=== PATIENT | female | born 1970 | race Caucasian/White ===

== ENCOUNTER → 2018-06-24 | Outpatient (CLI) | payer OTHER ==
[~2018-06-24] MED LIST: CIPR250 PO; HYDACE5325 PO; Inderal40 MG PO; NAPR500 PO; Naprosyn500 MG PO; PHENA200 PO; Percocet 5-3251 EACH PO; SULTRIDS PO; TOBR.3OPSO OP; Veetids 500500 MG PO; [UNRECOGNIZED DRUG - REMARK]
[2018-06-27 23:09] LABS: CHLAMYDIA TRACHOMATIS, NAA Negative (Negative); NEISSERIA GONORRHOEAE, NAA Negative (Negative)
== END | disposition home or self-care (01) ==
LOC: LAB EV 18:59 → LAB SHORT 18:59
PROVIDERS: Internal Medicine
DX: Z20.9 Contact with and (suspected) exposure to unspecified communicable disease (principal)
CPT/HCPCS: 87491; 87591

== ENCOUNTER 2018-11-08 13:29 | Emergency (ER) | payer OTHER ==
[~2018-11-08] VITALS: Ht 165.1 cm; Wt 154.2 kg
[2018-11-08] MEDS ORDERED: ATEN50 PO (14:19)
[2018-11-08] MEDS ORDERED: AMLO10 PO (14:19)
[2018-11-08] MEDS ORDERED: ERYT1OIN RIGHTEYE (15:40)
== END 2018-11-08 16:03 | disposition home or self-care (01) ==
LOC: ER 13:29
DX: H10.9 Unspecified conjunctivitis (principal); Z79.899 Other long term (current) drug therapy; I10 Essential (primary) hypertension
CPT/HCPCS: 99282

== ENCOUNTER 2020-11-27 19:00 | Emergency (ER) | payer OTHER ==
[~2020-11-27] VITALS: Ht 165.1 cm; Wt 158.8 kg
[~2020-11-27 19:00] MED LIST changes: +AMLO10 PO; +ATEN50 PO; +ERYT1OIN RIGHTEYE
[2020-11-27 20:15] LABS: BASOPHILS ABSOLUTE AUTO 0.02 K/mm3 (0.00-0.23); BASOPHILS PERCENT AUTO 0 % (0-2); EOSINOPHILS ABSOLUTE AUTO 0.28 K/mm3 (0.00-0.68); EOSINOPHILS PERCENT AUTO 3 % (0-6); Hematocrit 46.4 % (33.0-51.0); Hemoglobin 14.9 g/dL (11.5-16.0); IMMATURE GRAN ABSOLUTE AUTO 0.07 K/mm3 (0.00-0.10); IMMATURE GRAN PERCENT AUTO 1 % (0-1); LYMPHOCYTES ABSOLUTE AUTO 1.42 K/mm3 (0.84-5.20); LYMPHOCYTES PERCENT AUTO 17 % (21-46); MONOCYTES ABSOLUTE AUTO 0.79 K/mm3 (0.16-1.47); MONOCYTES PERCENT AUTO 9 % (4-13); Mean Corpuscular HGB Conc 32.1 g/dL (31.5-36.5); Mean Corpuscular Volume 94 fL (80-100); Mean Platelet Volume 9.8 fL (9.1-12.4); NEUTROPHILS ABSOLUTE AUTO 5.91 K/mm3 (1.96-9.15); NEUTROPHILS PERCENT AUTO 70 % (41-73); Platelet Count 269 K/mm3 (150-400); RDW Coefficient Variation 13.7 % (11.7-14.2); RDW Standard Deviation 46.8 fL (35.1-46.3); Red Blood Cell Count 4.96 M/mm3 (3.80-5.20); White Blood Cell Count 8.49 K/mm3 (4.00-11.30)
[2020-11-27 20:36] LABS: Alanine Aminotransfer (ALT/SGP 50 U/L (12-78); Albumin, Blood 3.2 g/dL (3.4-5.0); Albumin/Globulin Ratio 0.9 (0.8-1.8); Alk Phos 133 U/L (50-136); Anion Gap 4 mmol/L (6-16); Aspartate Aminotrans (AST/SGOT 44 U/L (12-37); Bilirubin, Total 0.3 mg/dL (0.1-1.0); Blood Urea Nitrogen 17 mg/dL (8-24); CO2, Blood 27 mmol/L (21-32); Calcium, Blood 8.6 mg/dL (8.5-10.1); Chloride, Blood 109 mmol/L (98-108); Globulin, Blood 3.7 g/dL (2.2-4.0); Glomerular Filtration Rate >60 (60-); Glucose, Blood 114 mg/dL (70-99); Potassium, Blood 4.1 mmol/L (3.5-5.5); Sodium, Blood 140 mmol/L (136-145); Total Protein, Blood 6.9 g/dL (6.4-8.2); Troponin I <0.015 ng/mL (0.000-0.040)
[2020-11-27 21:59] LABS: Source, Urine Clean Catch
[2020-11-27 22:02] LABS: Bilirubin, Urine Neg (Neg); Blood, Urine 2+ (Neg); Glucose Qualitative, Urine Neg (Neg); Ketones, Urine Neg (Neg); Leukocyte Esterase, Urine 2+ (Neg); Nitrite, Urine Neg (Neg); Protein, Urine 2+ (Neg); Specific Gravity, Urine 1.015 (1.003-1.022); Urobilinogen, Urine NORM (Normal); pH, Urine 6.5 (5.0-8.0)
[2020-11-27 22:10] LABS: Appearance, Urine Hazy (Clear); Color, Urine Yellow (P-Yellow)
[2020-11-27 22:11] LABS: Bacteria Many /hpf; Red Blood Cells, Urine Rare /hpf (0-2); Squamous Epithelial Cells Few /hpf (Few); White Blood Cells, Urine TNTC /hpf (0-5)
[2020-11-28] MEDS ORDERED: CEFP200 PO (00:08)
[2020-11-28] MEDS ORDERED: Hydrochlorothia25 MG PO ×2 (00:09→00:10)
[2020-11-28] MEDS ORDERED: AMLO10 PO (00:10)
[2020-11-28] MEDS ORDERED: ATEN50 PO (00:10)
== END 2020-11-28 00:26 | disposition home or self-care (01) ==
LOC: ER 19:00
PROVIDERS: Physician Assistant
DX: I11.0 Hypertensive heart disease with heart failure (principal); I50.9 Heart failure, unspecified; N39.0 Urinary tract infection, site not specified; E66.01 Morbid (severe) obesity due to excess calories; K21.9 Gastro-esophageal reflux disease without esophagitis; K59.00 Constipation, unspecified
CPT/HCPCS: 36415; 71045; 80053; 81001; 83690; 83880; 84484; 85025; 87077; 87086; 87186; 93005; 93010; 96365; 96375; 99284-25; J0360; J0696; J1940

== ENCOUNTER → 2021-02-04 | Outpatient (CLI) | payer OTHER ==
[~2021-02-04] MED LIST changes: +CEFP200 PO; +Hydrochlorothia25 MG PO
== END ==
LOC: LAB 17:48 → LAB SHORT 17:48
DX: L03.119 Cellulitis of unspecified part of limb (principal)
CPT/HCPCS: 87070; 87075; 87205

== ENCOUNTER 2021-03-26 02:13 | Day surgery (SDC) | payer OTHER | END 2021-03-26 23:05 | disposition home or self-care (01) | LOC: WOUND 02:13 | DX: L97.812 Non-pressure chronic ulcer of other part of right lower leg with fat layer exposed (principal); L97.922 Non-pressure chronic ulcer of unspecified part of left lower leg with fat layer exposed; I87.2 Venous insufficiency (chronic) (peripheral); R60.0 Localized edema; I73.9 Peripheral vascular disease, unspecified; Z59.00 Homelessness unspecified | CPT/HCPCS: G0463 ==

== ENCOUNTER 2021-04-04 04:24 | Day surgery (SDC) | payer OTHER ==
[2021-04-12] MEDS ORDERED: CYCL10 PO (15:31)
== END 2021-04-04 23:48 | disposition home or self-care (01) ==
LOC: WOUND 04:24
DX: I89.0 Lymphedema, not elsewhere classified (principal)

== ENCOUNTER → 2021-04-10 | Outpatient (CLI) | payer OTHER ==
[~2021-04-10] MED LIST changes: +CYCL10 PO
[2021-04-10 13:29] LABS: BASOPHILS ABSOLUTE AUTO 0.02 K/mm3 (0.00-0.23); BASOPHILS PERCENT AUTO 0 % (0-2); EOSINOPHILS ABSOLUTE AUTO 0.08 K/mm3 (0.00-0.68); EOSINOPHILS PERCENT AUTO 1 % (0-6); Hematocrit 45.7 % (33.0-51.0); Hemoglobin 14.9 g/dL (11.5-16.0); IMMATURE GRAN ABSOLUTE AUTO 0.16 K/mm3 (0.00-0.10); IMMATURE GRAN PERCENT AUTO 2 % (0-1); LYMPHOCYTES ABSOLUTE AUTO 0.97 K/mm3 (0.84-5.20); LYMPHOCYTES PERCENT AUTO 12 % (21-46); MONOCYTES ABSOLUTE AUTO 1.09 K/mm3 (0.16-1.47); MONOCYTES PERCENT AUTO 13 % (4-13); Mean Corpuscular HGB 29.8 pg (26.0-34.0); Mean Corpuscular HGB Conc 32.6 g/dL (31.5-36.5); Mean Corpuscular Volume 91 fL (80-100); Mean Platelet Volume 9.7 fL (9.1-12.4); NEUTROPHILS ABSOLUTE AUTO 5.97 K/mm3 (1.96-9.15); NEUTROPHILS PERCENT AUTO 72 % (41-73); Platelet Count 213 K/mm3 (150-400); White Blood Cell Count 8.29 K/mm3 (4.00-11.30)
[2021-04-10 13:32] LABS: Anion Gap 7 mmol/L (6-16); Blood Urea Nitrogen 8 mg/dL (8-24); Bun/Creatinine Ratio 8.2 (12.0-20.0); CO2, Blood 29 mmol/L (21-32); Calcium, Blood 8.5 mg/dL (8.5-10.1); Chloride, Blood 98 mmol/L (98-108); Creatinine, Blood 0.97 mg/dL (0.40-1.00); Glomerular Filtration Rate >60 (60-); Glucose, Blood 99 mg/dL (70-99); Potassium, Blood 3.8 mmol/L (3.5-5.5); Sodium, Blood 134 mmol/L (136-145)
== END | disposition home or self-care (01) ==
LOC: LAB 13:22 → LAB SHORT 13:22
PROVIDERS: Physician Assistant Surgical
DX: U07.1 COVID-19 (principal); R60.0 Localized edema
CPT/HCPCS: 80048; 83880; 85025

== ENCOUNTER 2021-05-07 00:40 | Inpatient (IN) | payer OTHER ==
[~2021-05-07] VITALS: Ht 165.1 cm; Wt 174.2 kg
[2021-05-07 01:13] LABS: BASOPHILS ABSOLUTE AUTO 0.04 K/mm3 (0.00-0.23); BASOPHILS PERCENT AUTO 0 % (0-2); EOSINOPHILS ABSOLUTE AUTO 0.46 K/mm3 (0.00-0.68); EOSINOPHILS PERCENT AUTO 4 % (0-6); Hematocrit 41.6 % (33.0-51.0); Hemoglobin 13.8 g/dL (11.5-16.0); IMMATURE GRAN ABSOLUTE AUTO 0.09 K/mm3 (0.00-0.10); IMMATURE GRAN PERCENT AUTO 1 % (0-1); LYMPHOCYTES ABSOLUTE AUTO 1.32 K/mm3 (0.84-5.20); LYMPHOCYTES PERCENT AUTO 11 % (21-46); MONOCYTES ABSOLUTE AUTO 1.38 K/mm3 (0.16-1.47); MONOCYTES PERCENT AUTO 12 % (4-13); Mean Corpuscular HGB 29.9 pg (26.0-34.0); Mean Corpuscular HGB Conc 33.2 g/dL (31.5-36.5); Mean Corpuscular Volume 90 fL (80-100); Mean Platelet Volume 10.6 fL (9.1-12.4); NEUTROPHILS ABSOLUTE AUTO 8.43 K/mm3 (1.96-9.15); NEUTROPHILS PERCENT AUTO 72 % (41-73); Platelet Count 242 K/mm3 (150-400); RDW Coefficient Variation 13.7 % (11.7-14.2); RDW Standard Deviation 45.1 fL (35.1-46.3); Red Blood Cell Count 4.61 M/mm3 (3.80-5.20); White Blood Cell Count 11.72 K/mm3 (4.00-11.30)
[2021-05-07] MEDS ORDERED: METO50ER PO (01:14)
[2021-05-07] MEDS ORDERED: GABA100 PO (01:14)
[2021-05-07] MEDS ORDERED: FURO80 PO (01:15)
[2021-05-07 01:26] LABS: Albumin, Blood 2.9 g/dL (3.4-5.0); Albumin/Globulin Ratio 0.7 (0.8-1.8); Bilirubin, Total 0.6 mg/dL (0.1-1.0); Bun/Creatinine Ratio 20.6 (12.0-20.0); Calcium, Blood 9.3 mg/dL (8.5-10.1); Creatinine, Blood 1.02 mg/dL (0.40-1.00); Globulin, Blood 4.2 g/dL (2.2-4.0); Potassium, Blood 3.4 mmol/L (3.5-5.5); Total Protein, Blood 7.1 g/dL (6.4-8.2)
[2021-05-07 01:37] LABS: C-REACTIVE PROTEIN, EXT RANGE 10.3 mg/dL (0.000-0.300)
[2021-05-07 07:05] LABS: BASOPHILS ABSOLUTE AUTO 0.04 K/mm3 (0.00-0.23); BASOPHILS PERCENT AUTO 0 % (0-2); EOSINOPHILS ABSOLUTE AUTO 0.43 K/mm3 (0.00-0.68); EOSINOPHILS PERCENT AUTO 5 % (0-6); Hematocrit 35.1 % (33.0-51.0); Hemoglobin 11.6 g/dL (11.5-16.0); IMMATURE GRAN ABSOLUTE AUTO 0.09 K/mm3 (0.00-0.10); IMMATURE GRAN PERCENT AUTO 1 % (0-1); LYMPHOCYTES ABSOLUTE AUTO 1.27 K/mm3 (0.84-5.20); LYMPHOCYTES PERCENT AUTO 13 % (21-46); MONOCYTES ABSOLUTE AUTO 0.95 K/mm3 (0.16-1.47); MONOCYTES PERCENT AUTO 10 % (4-13); Mean Corpuscular HGB 30.1 pg (26.0-34.0); Mean Corpuscular Volume 91 fL (80-100); Mean Platelet Volume 10.5 fL (9.1-12.4); NEUTROPHILS ABSOLUTE AUTO 6.87 K/mm3 (1.96-9.15); NEUTROPHILS PERCENT AUTO 71 % (41-73); Platelet Count 210 K/mm3 (150-400); RDW Coefficient Variation 13.8 % (11.7-14.2); RDW Standard Deviation 46.2 fL (35.1-46.3); Red Blood Cell Count 3.85 M/mm3 (3.80-5.20); White Blood Cell Count 9.65 K/mm3 (4.00-11.30)
[2021-05-07 08:24] LABS: Alanine Aminotransfer (ALT/SGP 37 U/L (12-78); Albumin, Blood 2.2 g/dL (3.4-5.0); Albumin/Globulin Ratio 0.8 (0.8-1.8); Alk Phos 83 U/L (50-136); Anion Gap 8 mmol/L (6-16); Aspartate Aminotrans (AST/SGOT 32 U/L (12-37); Bilirubin, Total 0.8 mg/dL (0.1-1.0); Blood Urea Nitrogen 17 mg/dL (8-24); Bun/Creatinine Ratio 20.3 (12.0-20.0); CO2, Blood 24 mmol/L (21-32); Calcium, Blood 7.5 mg/dL (8.5-10.1); Chloride, Blood 112 mmol/L (98-108); Creatinine, Blood 0.84 mg/dL (0.40-1.00); Globulin, Blood 2.8 g/dL (2.2-4.0); Glomerular Filtration Rate >60 (60-); Glucose, Blood 116 mg/dL (70-99); Potassium, Blood 3.2 mmol/L (3.5-5.5); Sodium, Blood 144 mmol/L (136-145)
--- NOTE | 2021-05-07 15:08 | NUR ---
PATIENT HAS BEEN PLEASANT AND COOPERATIVE WITH STAFF. SHE CALLS APPROPRIATELY FOR STAFF ASSIST NEEDED HOWEVER DOES WELL TRANSFERING HERSELF TO/FROM THE BED/BSC ON HER OWN. BLE EXTREMELY EDEMEDOUS AND APPEAR TO BE COVERED WITH POSSIBLY VENOUS STASIS ULCERS? WOUND APPEARING NECROTIC TO L GARCIA. LLE WRAPPED IN XEROFORM AND KERLIX BY WOUND CLINIC STAFF MEMBER. FINGER WRAPPED THE SAME. PATIENT MEDICATED WITH IV FENTANYL ONCE AND IT WAS VERY EFFECTIVE WITH PAIN CONTROL. PATIENT CONTINUES TO RECIEVE IV ABX AND IV POTASSIUM WITHOUT ANY S/SX OR ADVERSE REACTIONS OR CONCERNS NOTED OR REPORTED. THE PATIENT IS CURRENTLY RESTING IN BED. CALL LIGHT WITHIN REACH.
--- NOTE | 2021-05-07 16:51 | NUR ---
I went and spoke with the patient today in her [facility] room 301. Patient requested I order a 4 wheeled walker with a seat. I ordered that via [place] to be delivered today to her [facility] room. Patient states she does not have a preference for Home Health or and prefers UVNR if placed at a SNF. Pt states she lives in an RV with her boyfriend although she has not had contact with him in the last few days. Pt states she uses a cane at home but, does not have it with her in the hospital. Patient reports that she does have family in the area and anticipates them visiting her in the hospital this afternoon.
--- NOTE | 2021-05-08 06:16 | NUR ---
SHIFT SUMMARY PT VERY SLEEPY THIS EVENING. DIFFICULT TO AROUSE AT TIMES. PT STATES THAT THIS IS NORMAL FOR HER. PT WOULD WAKE TO ANSWER QUESTIONS AND WOKE LONG ENOUGH TO EAT A SNACK BUT WOULD SHORTLY AFTER FALL BACK ASLEEP. PT REPORTING PAIN TO R POINTER FINGER, HOWEVER DID NOT MEDICATE DUE TO LETHARGY. DRESSING TO R POINTER FINGER AND LLE C/D/I. DISCOLORATION NOTED TO LLE. PT EDEMATOUS THROUGHOUT. VITAL SIGNS STABLE. WILL CONTINUE TO MONITOR.
[2021-05-08 07:50] LABS: BASOPHILS ABSOLUTE AUTO 0.05 K/mm3 (0.00-0.23); BASOPHILS PERCENT AUTO 1 % (0-2); EOSINOPHILS ABSOLUTE AUTO 0.56 K/mm3 (0.00-0.68); EOSINOPHILS PERCENT AUTO 5 % (0-6); Hematocrit 43.2 % (33.0-51.0); Hemoglobin 13.9 g/dL (11.5-16.0); IMMATURE GRAN ABSOLUTE AUTO 0.11 K/mm3 (0.00-0.10); IMMATURE GRAN PERCENT AUTO 1 % (0-1); LYMPHOCYTES ABSOLUTE AUTO 1.75 K/mm3 (0.84-5.20); LYMPHOCYTES PERCENT AUTO 16 % (21-46); MONOCYTES ABSOLUTE AUTO 1.18 K/mm3 (0.16-1.47); MONOCYTES PERCENT AUTO 11 % (4-13); Mean Corpuscular HGB 29.6 pg (26.0-34.0); Mean Corpuscular HGB Conc 32.2 g/dL (31.5-36.5); Mean Corpuscular Volume 92 fL (80-100); Mean Platelet Volume 10.6 fL (9.1-12.4); NEUTROPHILS ABSOLUTE AUTO 7.12 K/mm3 (1.96-9.15); NEUTROPHILS PERCENT AUTO 66 % (41-73); Platelet Count 284 K/mm3 (150-400); RDW Coefficient Variation 13.7 % (11.7-14.2); RDW Standard Deviation 46.5 fL (35.1-46.3); White Blood Cell Count 10.77 K/mm3 (4.00-11.30)
[2021-05-08 08:24] LABS: Albumin, Blood 2.7 g/dL (3.4-5.0); Anion Gap 7 mmol/L (6-16); Blood Urea Nitrogen 20 mg/dL (8-24); CO2, Blood 31 mmol/L (21-32); Calcium, Blood 9.2 mg/dL (8.5-10.1); Chloride, Blood 102 mmol/L (98-108); Creatinine, Blood 1.25 mg/dL (0.40-1.00); Glomerular Filtration Rate 45 (60-); Glucose, Blood 137 mg/dL (70-99); Magnesium, Blood 1.6 mg/dL (1.6-2.4); Phosphorus, Blood 3.1 mg/dL (2.5-4.9); Sodium, Blood 140 mmol/L (136-145)
[2021-05-08 15:23] LABS: BASOPHILS ABSOLUTE AUTO 0.06 K/mm3 (0.00-0.23); BASOPHILS PERCENT AUTO 1 % (0-2); EOSINOPHILS ABSOLUTE AUTO 0.57 K/mm3 (0.00-0.68); EOSINOPHILS PERCENT AUTO 5 % (0-6); Hemoglobin 14.5 g/dL (11.5-16.0); IMMATURE GRAN ABSOLUTE AUTO 0.15 K/mm3 (0.00-0.10); IMMATURE GRAN PERCENT AUTO 1 % (0-1); LYMPHOCYTES ABSOLUTE AUTO 1.65 K/mm3 (0.84-5.20); LYMPHOCYTES PERCENT AUTO 15 % (21-46); MONOCYTES ABSOLUTE AUTO 1.12 K/mm3 (0.16-1.47); MONOCYTES PERCENT AUTO 10 % (4-13); Mean Corpuscular Volume 91 fL (80-100); Mean Platelet Volume 10.3 fL (9.1-12.4); NEUTROPHILS ABSOLUTE AUTO 7.37 K/mm3 (1.96-9.15); NEUTROPHILS PERCENT AUTO 68 % (41-73); Platelet Count 303 K/mm3 (150-400); RDW Coefficient Variation 13.6 % (11.7-14.2); RDW Standard Deviation 45.7 fL (35.1-46.3); Red Blood Cell Count 4.84 M/mm3 (3.80-5.20); White Blood Cell Count 10.92 K/mm3 (4.00-11.30)
[2021-05-08 15:49] LABS: Anion Gap 7 mmol/L (6-16); Blood Urea Nitrogen 19 mg/dL (8-24); Bun/Creatinine Ratio 14.2 (12.0-20.0); CO2, Blood 33 mmol/L (21-32); Calcium, Blood 9.6 mg/dL (8.5-10.1); Chloride, Blood 99 mmol/L (98-108); Creatinine, Blood 1.34 mg/dL (0.40-1.00); Glomerular Filtration Rate 42 (60-); Glucose, Blood 140 mg/dL (70-99); Potassium, Blood 3.8 mmol/L (3.5-5.5); Sodium, Blood 139 mmol/L (136-145); Vancomycin, Random 18.6 ug/mL
--- NOTE | 2021-05-08 17:14 | NUR ---
PT AOX4 AND COOPERATIVE OF CARE.PT CONTINUE TO HAVE EDEMA LE WITH REDNESS. R INDEX FINGER IS VERY RED, SWOLLEN AND HOT REDNESS EXTENDS TO FOREARM. DR BRITT HAS BEEN CONSULTED BY DR LYNN TO EVALUATE R FINGER. PT TREATED FOR PAIN IN R FINGER PER EMAR. PT STARTED SHIFT WITH BP OF 163/113 AND WAS GIVEN MORNING BP MEDS. LAST BP OF 1603 WAS 149/97. NO DISTRESS NOTED AT THIS TIME PT ABLE TO CALL APPROPRIATELY. WILL CONTINUE TO MONITOR.
[2021-05-08 22:48] LABS: Influenza A, PCR NEGATIVE (NEGATIVE); Influenza B, PCR NEGATIVE (NEGATIVE); Resp Syncytial Virus, PCR NEGATIVE (NEGATIVE)
[2021-05-08 22:50] LABS: SARS-Cov-2 (COVID-19) PCR, MMC POSITIVE (NEGATIVE)
--- NOTE | 2021-05-09 05:30 | NUR ---
PT REMAINS ALERT AND ORIENTED X4, SLEPT FOR MOST OF THE NIGHT AND HAD Q4 HAND SOAKINGS ALONG WITH NPO AFTER MIDNIGHT. PT REFUSED HS ANTI-FUNGAL POWDER AND VS ALONG WITH 0500 VS. PT STATES SHE IS SLEEPING AND REFUSES. PT MAKE NO COMPLAINTS THIS SHIFT, WENT TO AND FROM [facility] WITH STAND BY ASSIST. STAFF WILL CONT TO MONITOR.
[2021-05-09 08:07] LABS: Albumin, Blood 2.8 g/dL (3.4-5.0); Anion Gap 5 mmol/L (6-16); Blood Urea Nitrogen 19 mg/dL (8-24); Bun/Creatinine Ratio 16.2 (12.0-20.0); CO2, Blood 36 mmol/L (21-32); Calcium, Blood 9.5 mg/dL (8.5-10.1); Chloride, Blood 98 mmol/L (98-108); Creatinine, Blood 1.17 mg/dL (0.40-1.00); Glomerular Filtration Rate 49 (60-); Glucose, Blood 144 mg/dL (70-99); Magnesium, Blood 1.6 mg/dL (1.6-2.4); Phosphorus, Blood 3.2 mg/dL (2.5-4.9); Potassium, Blood 3.9 mmol/L (3.5-5.5); Sodium, Blood 139 mmol/L (136-145)
[2021-05-09 14:38] LABS: Vancomycin, Trough 16.9 ug/mL (5.0-10.0)
--- NOTE | 2021-05-09 16:38 | NUR ---
05/09/21 5673 Carla Alegria 14G ANGIOCATH CUT TO SIZE TO MAKE DRAIN. ONE PIECE LEFT IN.
--- NOTE | 2021-05-09 17:47 | NUR ---
PT AOX4 AND COOPERATIVE. PT HAS BEEN NPO ALL DAY AND THEN WHEN FOR HER PROCEDURE AT 1445 AND THEN ARRIVED BACK AFTER L FINGER IND WAS COMPLETED AT 1700. PT AO AND WANTING HER DINNER BP CONTINUES TO BE HIGH DOCTOR BURDEN IS AWARE. WILL CONTINUE TO MONITOR.
--- NOTE | 2021-05-10 06:13 | NUR ---
SHIFT SUMMARY PT IS A 51 Y/O FEMALE, ADMITTED FOR CELLULITIS OF R INDEX FINGER. SHE IS A&O X 4, INDEPENDENT TO THE BS. PT HAD A SURGICAL I&D OF THE R INDEX FINGER ON 05/09. SURGICAL DRESSING IN PLACE. PT SLEPT THROUGH THE NIGHT, NO REQUESTS FOR PAIN MEDS. NO REPORTS OF NAUSEA OR SOB. PT IS ON 3L O2 DURING NOC, SATTING > 90%. ALL OTHER VITALS STABLE. NO OTHER ACUTE CHANGES IN PT CONDITION NOTED DURING THE NIGHT. WILL CONTINUE TO MONITOR AND TREAT PER EMAR UNTIL HAND OFF TO DAY SHIFT RN.
[2021-05-10 07:48] LABS: Albumin, Blood 2.7 g/dL (3.4-5.0); Anion Gap 6 mmol/L (6-16); Blood Urea Nitrogen 28 mg/dL (8-24); Bun/Creatinine Ratio 17.9 (12.0-20.0); CO2, Blood 35 mmol/L (21-32); Calcium, Blood 9.2 mg/dL (8.5-10.1); Chloride, Blood 98 mmol/L (98-108); Creatinine, Blood 1.56 mg/dL (0.40-1.00); Glomerular Filtration Rate 35 (60-); Glucose, Blood 163 mg/dL (70-99); Phosphorus, Blood 3.4 mg/dL (2.5-4.9); Potassium, Blood 4.8 mmol/L (3.5-5.5); Sodium, Blood 139 mmol/L (136-145)
--- NOTE | 2021-05-10 16:33 | NUR ---
SHIFT SUMMARY PT AXO, PLEASANT AND COOPERATIVE WITH CARE. UP WITH SBA TO BSC AND CHAIR. VSS. IV PATENT AND INFUSING PER EMAR. PO INTAKE OF WATER ENCOURAGED. PT ASKED FOR SNACKS THROUGHOUT THE DAY. CBG ACHS. THIS NURSE DISCUSSED HEALTHY CHOICES FOR FOOD AND DIET BUT PATIENT DOES NOT HAVE A DIABETES DIAGNOSIS AND NEEDS EXTENSIVE EDUCATION CONCERNING DIET. PT COMPLAINED OF PAIN X1 THIS SHIFT, MEDICATED PER EMAR. BED IN LOW POSITION, CALL LIGHT WITHIN REACH. PT DENIES SOB AND N/V.
--- NOTE | 2021-05-11 05:13 | NUR ---
SHIFT SUMMARY PT IS A 51 Y/O FEMALE ADMITTED FOR R HAND CELLULITIS, WITH SURGICAL I&D OF R INDEX FINGER ON 05/09. SURGICAL DRESSING IN PLACE. NO C/O ACUTE PAIN, NAUSEA OR SOB. PT SLEPT WELL THROUGH THE NIGHT. PT ON 3L O2 VIA NC DURING NOC. VITAL SIGNS STABLE. NO ACUTE CHANGES IN PT CONDITION NOTED. WILL CONTINUE TO MONITOR AND TREAT PER EMAR UNTIL HAND OFF TO DAY SHIFT RN.
[2021-05-11 07:42] LABS: BASOPHILS ABSOLUTE AUTO 0.05 K/mm3 (0.00-0.23); BASOPHILS PERCENT AUTO 1 % (0-2); EOSINOPHILS ABSOLUTE AUTO 0.32 K/mm3 (0.00-0.68); EOSINOPHILS PERCENT AUTO 3 % (0-6); Hematocrit 46.1 % (33.0-51.0); Hemoglobin 14.6 g/dL (11.5-16.0); IMMATURE GRAN ABSOLUTE AUTO 0.31 K/mm3 (0.00-0.10); IMMATURE GRAN PERCENT AUTO 3 % (0-1); LYMPHOCYTES ABSOLUTE AUTO 1.83 K/mm3 (0.84-5.20); LYMPHOCYTES PERCENT AUTO 17 % (21-46); MONOCYTES ABSOLUTE AUTO 0.87 K/mm3 (0.16-1.47); MONOCYTES PERCENT AUTO 8 % (4-13); Mean Corpuscular HGB 29.7 pg (26.0-34.0); Mean Corpuscular HGB Conc 31.7 g/dL (31.5-36.5); Mean Corpuscular Volume 94 fL (80-100); Mean Platelet Volume 9.9 fL (9.1-12.4); NEUTROPHILS ABSOLUTE AUTO 7.23 K/mm3 (1.96-9.15); NEUTROPHILS PERCENT AUTO 68 % (41-73); NRBC ABSOLUTE 0.02 K/mm3 (0.00-0.02); NRBC Auto 0.2 /100 WBC (0.0-0.2); Platelet Count 289 K/mm3 (150-400); RDW Coefficient Variation 13.4 % (11.7-14.2); RDW Standard Deviation 46.2 fL (35.1-46.3); Red Blood Cell Count 4.92 M/mm3 (3.80-5.20); White Blood Cell Count 10.61 K/mm3 (4.00-11.30)
[2021-05-11 07:58] LABS: Albumin, Blood 2.8 g/dL (3.4-5.0); Anion Gap 7 mmol/L (6-16); Blood Urea Nitrogen 30 mg/dL (8-24); Bun/Creatinine Ratio 22.1 (12.0-20.0); CO2, Blood 35 mmol/L (21-32); Calcium, Blood 9.6 mg/dL (8.5-10.1); Chloride, Blood 101 mmol/L (98-108); Creatinine, Blood 1.36 mg/dL (0.40-1.00); Glomerular Filtration Rate 41 (60-); Glucose, Blood 117 mg/dL (70-99); Potassium, Blood 4.6 mmol/L (3.5-5.5); Sodium, Blood 143 mmol/L (136-145)
--- NOTE | 2021-05-11 16:43 | NUR ---
SHIFT SUMMARY PATIENT DENIES PAIN, NAUSEA, AND SHORTNESS OF BREATH. PATIENT USES THE BSC INDEPENDENTLY. PATIENT DID HAVE ASSIST WITH A SHOWER TODAY. POWERGLIDE TO MARY CARMEN DRAWS. PATIENT IS EATING AND DRINKING WELL. PATIENT SLEPT IN AFTERNOON. DR. BRITT CHANGED DRESSING ON PATIENT RIHGT FINGER. TOLD PATIENT SHE COULD TAKE IT OFF TO SHOWER. DR. BRITT TOLD ME TO REDO THE BANDAGE WITH 4X4 AND COBAN AFTER SHOWER. PATIENT IS PLEASANT AND COOPERATIVE WITH CARE.
--- NOTE | 2021-05-12 04:00 | NUR ---
SUMMARY: PT A/OX4, INDEPENDENT TO BSC AND CALLS APPROPRIATELY TO SPECIFY NEEDS. DX TO R.HAND REMAINS C/D/I S/P RECENT I&D AND IV ABX RECIEVED T/O NOCTE. SHE DENIED PAIN, NAUSEA AND ALL OTHER COMPLAINTS. NO ACUTE CHANGES, VSS/AFEBRILE. SHE REMAINS ON 2-3L O2 AT HS AND CONT'S HYPERTENSIVE AT TIMES BUT IS ASYMPTOMATIC OF CARDIAC DISTRESS. SNF UPON D/C. WCTM/REPORT TO DAY RN.
[2021-05-12 08:15] LABS: BASOPHILS ABSOLUTE AUTO 0.05 K/mm3 (0.00-0.23); BASOPHILS PERCENT AUTO 1 % (0-2); EOSINOPHILS ABSOLUTE AUTO 0.36 K/mm3 (0.00-0.68); EOSINOPHILS PERCENT AUTO 4 % (0-6); Hematocrit 45.6 % (33.0-51.0); Hemoglobin 14.7 g/dL (11.5-16.0); IMMATURE GRAN ABSOLUTE AUTO 0.26 K/mm3 (0.00-0.10); IMMATURE GRAN PERCENT AUTO 3 % (0-1); LYMPHOCYTES PERCENT AUTO 15 % (21-46); MONOCYTES ABSOLUTE AUTO 0.84 K/mm3 (0.16-1.47); MONOCYTES PERCENT AUTO 9 % (4-13); Mean Corpuscular HGB 29.5 pg (26.0-34.0); Mean Corpuscular HGB Conc 32.2 g/dL (31.5-36.5); Mean Corpuscular Volume 92 fL (80-100); Mean Platelet Volume 9.7 fL (9.1-12.4); NEUTROPHILS ABSOLUTE AUTO 6.75 K/mm3 (1.96-9.15); NEUTROPHILS PERCENT AUTO 70 % (41-73); Platelet Count 297 K/mm3 (150-400); RDW Coefficient Variation 13.5 % (11.7-14.2); RDW Standard Deviation 45.6 fL (35.1-46.3); Red Blood Cell Count 4.98 M/mm3 (3.80-5.20); White Blood Cell Count 9.66 K/mm3 (4.00-11.30)
[2021-05-12 08:42] LABS: Albumin, Blood 2.9 g/dL (3.4-5.0); Anion Gap 6 mmol/L (6-16); Blood Urea Nitrogen 29 mg/dL (8-24); CO2, Blood 33 mmol/L (21-32); Calcium, Blood 9.7 mg/dL (8.5-10.1); Chloride, Blood 102 mmol/L (98-108); Creatinine, Blood 1.32 mg/dL (0.40-1.00); Glomerular Filtration Rate 42 (60-); Glucose, Blood 152 mg/dL (70-99); Phosphorus, Blood 3.5 mg/dL (2.5-4.9); Potassium, Blood 3.9 mmol/L (3.5-5.5); Sodium, Blood 141 mmol/L (136-145)
[2021-05-12 08:57] LABS: Bun/Creatinine Ratio 22.7 (12.0-20.0); Calcium, Blood 9.6 mg/dL (8.5-10.1); Creatinine, Blood 1.32 mg/dL (0.40-1.00); Potassium, Blood 3.9 mmol/L (3.5-5.5)
[2021-05-12 12:21] LABS: Eosinophils-Raw #,Urine 0; White Blood Cells Urine 0-2 /hpf (0-5)
[2021-05-12 15:06] LABS: Vancomycin, Trough 25.6 ug/mL (5.0-10.0)
--- NOTE | 2021-05-12 18:12 | NUR ---
SHIFT SUMMARY PATIENT RESTING IN BED. PATIENT C/O PAIN IN FINGER. MEDICATED PER AUG. PATIENT GETS UP TO BEDSIDE COMMODE INDEPENDENTLY. CHANGED DRESSING ON FINGER WOUND MULTIPLE TIMES THROUGHOUT SHIFT. APPLIED UNNA BOOTS TO BLE. PATIENT REFUSED AUGMENTIN MEDICATION ORIGINALLY BUT NOW HAS CHANGED HER MIND AND IS WILLING TO TAKE NEXT DOSE. BLOOD PRESSURE ELEVATED. MEDICATED PER AUG. WILL CONTINUE TO MONITOR.
--- NOTE | 2021-05-13 05:13 | NUR ---
SHIFT SUMMARY: PT IS ALERT AND ORIENTED. PT IS CALM AND COOPERATIVE WITH CARE. PT CALLS APPROPRIATELY. PT IS INDEPENDENT IN THE ROOM. PT REPORTS PAIN ON ONE OCCASION, GAVE PRN FENTANYL. PT DENIES NAUSEA, VOMITING, AND SOB. PT SLEPT MUCH OF THE NIGHT WHEN NOT DISTURBED. PT'S PG WOULD NOT DRAW MORNING LABS AND PATIENT SAID SHE IS A POSSIBLE DC TODAY AND WOULD NOT LIKE TO BE DRAWN AT THIS TIME. NO ACUTE CHANGES OR COMPLICATIONS OVERNIGHT. BED IN LOW POSITION, CALL LIGHT WITHIN REACH. WILL REPORT TO DAY NURSE.
[2021-05-13 09:56] LABS: BASOPHILS ABSOLUTE AUTO 0.06 K/mm3 (0.00-0.23); BASOPHILS PERCENT AUTO 1 % (0-2); EOSINOPHILS ABSOLUTE AUTO 0.35 K/mm3 (0.00-0.68); EOSINOPHILS PERCENT AUTO 3 % (0-6); Hematocrit 50.4 % (33.0-51.0); Hemoglobin 15.9 g/dL (11.5-16.0); IMMATURE GRAN ABSOLUTE AUTO 0.31 K/mm3 (0.00-0.10); IMMATURE GRAN PERCENT AUTO 3 % (0-1); LYMPHOCYTES ABSOLUTE AUTO 1.89 K/mm3 (0.84-5.20); LYMPHOCYTES PERCENT AUTO 16 % (21-46); MONOCYTES ABSOLUTE AUTO 0.96 K/mm3 (0.16-1.47); MONOCYTES PERCENT AUTO 8 % (4-13); Mean Corpuscular HGB 29.2 pg (26.0-34.0); Mean Corpuscular HGB Conc 31.5 g/dL (31.5-36.5); Mean Corpuscular Volume 93 fL (80-100); NEUTROPHILS ABSOLUTE AUTO 8.11 K/mm3 (1.96-9.15); NEUTROPHILS PERCENT AUTO 69 % (41-73); Platelet Count 315 K/mm3 (150-400); RDW Coefficient Variation 13.5 % (11.7-14.2); RDW Standard Deviation 45.6 fL (35.1-46.3); Red Blood Cell Count 5.45 M/mm3 (3.80-5.20); White Blood Cell Count 11.68 K/mm3 (4.00-11.30)
[2021-05-13 10:24] LABS: Albumin, Blood 3.2 g/dL (3.4-5.0); Albumin/Globulin Ratio 0.7 (0.8-1.8); Bilirubin, Total 0.6 mg/dL (0.1-1.0); Bun/Creatinine Ratio 25.2 (12.0-20.0); Creatinine, Blood 1.39 mg/dL (0.40-1.00); Globulin, Blood 4.3 g/dL (2.2-4.0); Phosphorus, Blood 3.6 mg/dL (2.5-4.9); Potassium, Blood 4.1 mmol/L (3.5-5.5); Total Protein, Blood 7.5 g/dL (6.4-8.2)
--- NOTE | 2021-05-13 18:18 | NUR ---
PATIENT IS ALERT AND ORIENTED AND COOPERATIVE WITH CARE. C/O RIGHT FINGER PAIN, MEDICATED PER EMAR. WORKED WITH PT TODAY. SHE IS INDEPENDENT IN HER ROOM WITH FWW. WILL CONTINUE TO MONITOR
[2021-05-14 04:54] LABS: BASOPHILS ABSOLUTE AUTO 0.05 K/mm3 (0.00-0.23); BASOPHILS PERCENT AUTO 1 % (0-2); EOSINOPHILS ABSOLUTE AUTO 0.27 K/mm3 (0.00-0.68); EOSINOPHILS PERCENT AUTO 3 % (0-6); Hematocrit 47.3 % (33.0-51.0); Hemoglobin 15.2 g/dL (11.5-16.0); IMMATURE GRAN ABSOLUTE AUTO 0.25 K/mm3 (0.00-0.10); IMMATURE GRAN PERCENT AUTO 2 % (0-1); LYMPHOCYTES ABSOLUTE AUTO 1.85 K/mm3 (0.84-5.20); LYMPHOCYTES PERCENT AUTO 17 % (21-46); MONOCYTES ABSOLUTE AUTO 0.82 K/mm3 (0.16-1.47); MONOCYTES PERCENT AUTO 8 % (4-13); Mean Corpuscular HGB 29.4 pg (26.0-34.0); Mean Corpuscular HGB Conc 32.1 g/dL (31.5-36.5); Mean Corpuscular Volume 92 fL (80-100); Mean Platelet Volume 10.1 fL (9.1-12.4); NEUTROPHILS ABSOLUTE AUTO 7.51 K/mm3 (1.96-9.15); NEUTROPHILS PERCENT AUTO 70 % (41-73); Platelet Count 275 K/mm3 (150-400); RDW Coefficient Variation 13.2 % (11.7-14.2); RDW Standard Deviation 44.8 fL (35.1-46.3); Red Blood Cell Count 5.17 M/mm3 (3.80-5.20); White Blood Cell Count 10.75 K/mm3 (4.00-11.30)
[2021-05-14 05:10] LABS: Bun/Creatinine Ratio 29.8 (12.0-20.0); Calcium, Blood 9.7 mg/dL (8.5-10.1); Creatinine, Blood 1.41 mg/dL (0.40-1.00); Potassium, Blood 4.1 mmol/L (3.5-5.5)
--- NOTE | 2021-05-14 05:45 | NUR ---
SHIFT SUMMARY PATIENT ALERT AND ORIENTED. MEDICATED PER EMAR FOR PAIN. NO COMPLAINTS OF SHORTNESS OF BREATH. PATIENT'S FINGER HAS INCREASED IN REDNESS AND SWELLING OVERNIGHT. CALL LIGHT WITHIN REACH. REPORT GIVEN TO ONCOMING RN.
[2021-05-14] MEDS ORDERED: ACET325 PO (11:12)
[2021-05-14] MEDS ORDERED: CATAPRES0.1 MG PO (11:13)
[2021-05-14] MEDS ORDERED: AMOCLA875 PO (11:13)
[2021-05-14] MEDS ORDERED: DOCU100 PO (11:13)
[2021-05-14] MEDS ORDERED: HYDRA25 PO (11:14)
[2021-05-14] MEDS ORDERED: Inzo Antifun141.7 GM TOP (11:15)
[2021-05-14] MEDS ORDERED: ADALAT CC60 M1 PO (11:16)
[2021-05-14] MEDS ORDERED: B-1100 M2 PO (11:17)
[2021-05-14] MEDS ORDERED: VISBIOME 112.51 EACH PO (11:17)
[2021-05-14] MEDS ORDERED: POTA10T PO (11:17)
[2021-05-14] MEDS ORDERED: [UNRECOGNIZED DRUG - SUPPLY] TOP (11:19)
--- NOTE | 2021-05-14 11:25 | NUR ---
Per chart review with Dr. Marie, patient appropriate for discharge to her home with [facility] services. Patient will be transport by [facility] via wheelchair at 4:30PM to cigar packer and picker her prescriptions on the way to her residence. Patient is aware of discharge plan and denies barriers to discharge. Patient is also scheduled for a [facility] Follow-Up with Dr. Morin on Wednesday, May 19, 2021 at 11:20 AM. I confirmed time/date with patient. On 05/08/2021 patient was tested for Covid - test was positive. [facility] has been informed of precautions.
[2021-05-14 11:37] LABS: Creatinine, Urine Random 39.7 mg/dL (27.00-270.00); Microalb/Creat Ratio UR, Rand 15.189 mg/g (0.000-30.000); Microalbumin, Random Urine 6.03 mg/L (0.000-20.000)
--- NOTE | 2021-05-14 17:26 | NUR ---
PATIENT DISCHARGED AT 1700
== END 2021-05-14 17:09 | disposition home health service (06) | DRG 513 ==
LOC: ER 00:40 → MEDS 04:50
PROVIDERS: Family Medicine; Hospitalist; Internal Medicine Nephrology; Orthopaedic Surgery; Pharmacist; Student in an Organized Health Care Education/Training Program; ADMIT Internal Medicine
PROC: 8E0ZXY6 Isolation (ICD-10-PCS; principal; 2021-05-07)
PROC: 0L970ZZ Drainage of Right Hand Tendon, Open Approach (ICD-10-PCS; 2021-05-07)
PROC: 0J9J0ZZ Drainage of Right Hand Subcutaneous Tissue and Fascia, Open Approach (ICD-10-PCS; 2021-05-09)
DX: M65.841 Other synovitis and tenosynovitis, right hand (principal); U07.1 COVID-19; N17.0 Acute kidney failure with tubular necrosis; L03.113 Cellulitis of right upper limb; L02.511 Cutaneous abscess of right hand; I13.0 Hypertensive heart and chronic kidney disease with heart failure and stage 1 through stage 4 chronic kidney disease, or unspecified chronic kidney disease; N25.81 Secondary hyperparathyroidism of renal origin; I16.0 Hypertensive urgency; Z66 Do not resuscitate; E66.01 Morbid (severe) obesity due to excess calories; K58.9 Irritable bowel syndrome, unspecified; E86.0 Dehydration; E87.6 Hypokalemia; I50.9 Heart failure, unspecified; I87.2 Venous insufficiency (chronic) (peripheral); K21.9 Gastro-esophageal reflux disease without esophagitis; Z98.84 Bariatric surgery status; Z98.890 Other specified postprocedural states; Z88.1 Allergy status to other antibiotic agents; Z79.899 Other long term (current) drug therapy
CPT/HCPCS: 0241U; 10060; 36415; 73140; 76770; 80048; 80053; 80069; 80202; 81025; 82043; 82436; 82570; 82947; 83735; 83880; 84100; 84300; 85025; 85651; 86140; 86141; 87071; 87075; 87081; 87205; 94760; 96365; 96366; 96367; 96375; 97110; 97116; 97162; 97166; 97530; 97535; 99284-25; A9270; C8923; J0330; J1100; J1650; J1940; J2270; J2405; J2543; J2704; J3010; J3370; J3480; J7030; J7040; J7050; Q9957

== ENCOUNTER 2021-08-11 20:07 | Inpatient (IN) | payer OTHER ==
[~2021-08-11] VITALS: Ht 162.6 cm; Wt 182.2 kg
[~2021-08-11 20:07] MED LIST changes: +ACET325 PO; +ADALAT CC60 M1 PO; +AMOCLA875 PO; +B-1100 M2 PO; +CATAPRES0.1 MG PO; +DOCU100 PO; +FURO80 PO; +GABA100 PO; +HYDRA25 PO; +Inzo Antifun141.7 GM TOP; +METO50ER PO; +POTA10T PO; +VISBIOME 112.51 EACH PO; +[UNRECOGNIZED DRUG - SUPPLY] TOP
[2021-08-11 21:08] LABS: BASOPHILS ABSOLUTE AUTO 0.06 K/mm3 (0.00-0.23); BASOPHILS PERCENT AUTO 0 % (0-2); EOSINOPHILS ABSOLUTE AUTO 0.21 K/mm3 (0.00-0.68); EOSINOPHILS PERCENT AUTO 1 % (0-6); Hematocrit 40.9 % (33.0-51.0); Hemoglobin 13.4 g/dL (11.5-16.0); IMMATURE GRAN ABSOLUTE AUTO 0.22 K/mm3 (0.00-0.10); IMMATURE GRAN PERCENT AUTO 1 % (0-1); LYMPHOCYTES ABSOLUTE AUTO 1.03 K/mm3 (0.84-5.20); LYMPHOCYTES PERCENT AUTO 6 % (21-46); MONOCYTES ABSOLUTE AUTO 1.14 K/mm3 (0.16-1.47); MONOCYTES PERCENT AUTO 7 % (4-13); Mean Corpuscular HGB 28.5 pg (26.0-34.0); Mean Corpuscular HGB Conc 32.8 g/dL (31.5-36.5); Mean Corpuscular Volume 87 fL (80-100); Mean Platelet Volume 10.1 fL (9.1-12.4); NEUTROPHILS ABSOLUTE AUTO 13.68 K/mm3 (1.96-9.15); NEUTROPHILS PERCENT AUTO 84 % (41-73); NRBC ABSOLUTE 0.02 K/mm3 (0.00-0.02); NRBC Auto 0.1 /100 WBC (0.0-0.2); Platelet Count 313 K/mm3 (150-400); RDW Coefficient Variation 13.6 % (11.7-14.2); RDW Standard Deviation 43.6 fL (35.1-46.3); Red Blood Cell Count 4.71 M/mm3 (3.80-5.20); White Blood Cell Count 16.34 K/mm3 (4.00-11.30)
[2021-08-11 21:23] LABS: Source, Urine Clean Catch
[2021-08-11 21:25] LABS: Blood, Urine 5+ (Neg); Glucose Qualitative, Urine Neg (Neg); Ketones, Urine Neg (Neg); Leukocyte Esterase, Urine 1+ (Neg); Nitrite, Urine Neg (Neg); Protein, Urine 2+ (Neg); Urobilinogen, Urine 3+ (Normal)
[2021-08-11 21:37] LABS: Appearance, Urine Hazy (Clear); Bilirubin, Urine 1+ (Neg); Color, Urine Pale Yellow (P-Yellow)
[2021-08-11 21:39] LABS: Amorphous Light (0-Heavy); Bacteria Few /hpf; Granular Casts 0-2 /lpf (0); Hyaline Casts 0-2 /lpf (0-2); Mucus Light (0-Heavy); Squamous Epithelial Cells Many /hpf (Few)
[2021-08-11 22:01] LABS: Alanine Aminotransfer (ALT/SGP 52 U/L (12-78); Albumin, Blood 2.3 g/dL (3.4-5.0); Albumin/Globulin Ratio 0.4 (0.8-1.8); Alk Phos 160 U/L (50-136); Anion Gap 8 mmol/L (6-16); Aspartate Aminotrans (AST/SGOT 83 U/L (12-37); Bilirubin, Total 1.2 mg/dL (0.1-1.0); Blood Urea Nitrogen 46 mg/dL (8-24); CO2, Blood 23 mmol/L (21-32); Chloride, Blood 98 mmol/L (98-108); Creatinine, Blood 1.92 mg/dL (0.40-1.00); Globulin, Blood 5.2 g/dL (2.2-4.0); Glomerular Filtration Rate 27 (60-); Glucose, Blood 138 mg/dL (70-99); Potassium, Blood 3.6 mmol/L (3.5-5.5); Sodium, Blood 129 mmol/L (136-145); Total Protein, Blood 7.5 g/dL (6.4-8.2)
[2021-08-11 22:08] LABS: C-REACTIVE PROTEIN, EXT RANGE >19.000 mg/dL (0.000-0.300)
[2021-08-12] MEDS ORDERED: Atarax10 MG PO (02:44)
--- NOTE | 2021-08-12 07:52 | NUR ---
PATIENT ARRIVED UNIT FROM ED AT 01:30AM ON A STRETCHER. REPORT PAIN 8/10 TYLENOL ADMINISTERED. NOTIFIED MD HR 117, NO ORDERS RECEIVED, MD SAID TO CONTINUE TO MONITOR. PT EXPRESSED CONCERNS ABOUT HER LIVING CONDITION AND WOULD LUKE TO BE DISCHARGE TO SNF PT IN LIVES WITH HER BOYFRIEND IN A TRAILER. DAY SHIFT NURSE NOTIFIED. PLAN OF CARE DISCUSSED WITH PATIENT , SHE VERBALIZED UNDERSTANDING. CALL LIGHT WITHIN REACH AND SIDE RAIL UP X2.
[2021-08-12 09:09] LABS: BASOPHILS ABSOLUTE AUTO 0.06 K/mm3 (0.00-0.23); BASOPHILS PERCENT AUTO 0 % (0-2); EOSINOPHILS ABSOLUTE AUTO 0.02 K/mm3 (0.00-0.68); EOSINOPHILS PERCENT AUTO 0 % (0-6); Hematocrit 38.5 % (33.0-51.0); Hemoglobin 12.7 g/dL (11.5-16.0); IMMATURE GRAN ABSOLUTE AUTO 0.22 K/mm3 (0.00-0.10); IMMATURE GRAN PERCENT AUTO 2 % (0-1); LYMPHOCYTES ABSOLUTE AUTO 0.57 K/mm3 (0.84-5.20); LYMPHOCYTES PERCENT AUTO 4 % (21-46); MONOCYTES ABSOLUTE AUTO 0.66 K/mm3 (0.16-1.47); MONOCYTES PERCENT AUTO 5 % (4-13); Mean Corpuscular Volume 88 fL (80-100); Mean Platelet Volume 10.1 fL (9.1-12.4); NEUTROPHILS ABSOLUTE AUTO 12.81 K/mm3 (1.96-9.15); NEUTROPHILS PERCENT AUTO 89 % (41-73); Platelet Count 299 K/mm3 (150-400); RDW Coefficient Variation 13.8 % (11.7-14.2); RDW Standard Deviation 44.8 fL (35.1-46.3); Red Blood Cell Count 4.38 M/mm3 (3.80-5.20); White Blood Cell Count 14.34 K/mm3 (4.00-11.30)
[2021-08-12 09:31] LABS: Albumin/Globulin Ratio 0.4 (0.8-1.8); Bilirubin, Total 0.9 mg/dL (0.1-1.0); Calcium, Blood 8.8 mg/dL (8.5-10.1); Creatinine, Blood 1.24 mg/dL (0.40-1.00); Globulin, Blood 4.6 g/dL (2.2-4.0); Potassium, Blood 3.5 mmol/L (3.5-5.5); Total Protein, Blood 6.6 g/dL (6.4-8.2)
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
--- NOTE | 2021-08-12 14:03 | NUR ---
Pt. is awake and in bed. Pt. wearing a CPAP. Pt. welcomes my visit. Pt. displays some spiritul distress related to her own life choices. Listen empathetically. Pt. also verbalized her motivation to call the ambulance, afer watching a next door neighbor pass away. Provided a calming presence. Pt. desired to remove CPAP. I found a nurse to help. Developed rapport with pt. Pt. displayed evidnce of renewed healthy attitudes and practices, and verbalized her increased courage to take better care of herself for her children and grandchildren. Prayed with pt. Pt. displayed evidence of resolve as she is choosing to kristin back for her health. Pt. verbalized gratitude for the spiritual care she received.
--- NOTE | 2021-08-12 17:34 | NUR ---
The pt is alert, oriented, and appropriate in conversation. She is a very deep sleeper, and noted spo2 drops to below 80% at times, while on 3 l/min n.c. oxygen delivery. Pt states she was diagnosed and prescribed a CPAP in the past, but never used it at home. CPAP was used by the patient today while napping, but a couple of times she quickly feel asleep before staff knew. She is willing to use the CPAP for the most part while here. She is on her baseline oxgyen delivery of 3 l/min. Appetite very good, eating and drinking without any difficulty or n/v. Clark catheter has good output of clear yellow urine. Pt had a small liquid brown BM today on the bedpan. States that she can only get up with help from her boyfriend and use of furniture to get up for toileting at home. She is very painful on her legs, particularly the left one. Photo documentation is in the chart. Weeping is constant and copious of the wound behind her left calf. Her hygiene appears to be poor. Filth and hair was removed from the deep crevices of her left foot. Wound care clinic was contacted for a consultation request, but they were unable to come to see the patient. Unna boots were ordered by Dr. Marie for the pt for bilateral wound care of the legs. Powerglide was placed today for ease of lab draws and a reliable IV access for her antibiotics.
--- NOTE | 2021-08-12 18:29 | NUR ---
Call to Dr. Burger's cell phone to notify him that the permacath placement is complete. Went to voice mail; message was left.
--- NOTE | 2021-08-12 20:10 | NUR ---
PT IS ALERT AND ORIENTED, RESTING IN BED. PT REFUSES TURNING, SHE REPORTS SHE IS COMFORTABLE. PT IS ABLE TO TURN TO HER SIDE FOR AUSCULTATION ON HER LUNGS. PT HAS EXP WHEEZES TO BILATERAL LUNG BASES, OTHERWISE LS ARE CLEAR. CONTINUOUS BIOX ON - SATS WNL ON 1L NC. PT IS MORBIDLY OBESE. PT DENIES CHEST PAIN, HEADACHE, NAUSEA, N/T, OR SOB. CALL LIGHT WITHIN REACH. BED IN LOW POSITION. FLUIDS AT BEDSIDE.
[2021-08-13 01:15] LABS: BASOPHILS PERCENT AUTO 1 % (0-2); EOSINOPHILS PERCENT AUTO 0 % (0-6); Hematocrit 39.2 % (33.0-51.0); Hemoglobin 12.8 g/dL (11.5-16.0); IMMATURE GRAN ABSOLUTE AUTO 0.43 K/mm3 (0.00-0.10); IMMATURE GRAN PERCENT AUTO 3 % (0-1); LYMPHOCYTES ABSOLUTE AUTO 0.61 K/mm3 (0.84-5.20); LYMPHOCYTES PERCENT AUTO 4 % (21-46); MONOCYTES ABSOLUTE AUTO 0.69 K/mm3 (0.16-1.47); MONOCYTES PERCENT AUTO 5 % (4-13); Mean Corpuscular HGB 28.4 pg (26.0-34.0); Mean Corpuscular HGB Conc 32.7 g/dL (31.5-36.5); Mean Corpuscular Volume 87 fL (80-100); NEUTROPHILS ABSOLUTE AUTO 13.26 K/mm3 (1.96-9.15); NEUTROPHILS PERCENT AUTO 88 % (41-73); NRBC ABSOLUTE 0.04 K/mm3 (0.00-0.02); NRBC Auto 0.3 /100 WBC (0.0-0.2); Platelet Count 344 K/mm3 (150-400); RDW Coefficient Variation 13.9 % (11.7-14.2); RDW Standard Deviation 44.9 fL (35.1-46.3); White Blood Cell Count 15.09 K/mm3 (4.00-11.30)
[2021-08-13 01:32] LABS: Albumin/Globulin Ratio 0.4 (0.8-1.8); Bilirubin, Total 0.6 mg/dL (0.1-1.0); Bun/Creatinine Ratio 32.1 (12.0-20.0); Calcium, Blood 8.9 mg/dL (8.5-10.1); Creatinine, Blood 1.12 mg/dL (0.40-1.00); Globulin, Blood 4.8 g/dL (2.2-4.0); Magnesium, Blood 2.2 mg/dL (1.6-2.4); Phosphorus, Blood 2.6 mg/dL (2.5-4.9); Potassium, Blood 3.9 mmol/L (3.5-5.5); Total Protein, Blood 6.8 g/dL (6.4-8.2)
[2021-08-13 01:38] LABS: Vancomycin, Trough 27.6 ug/mL (5.0-10.0)
--- NOTE | 2021-08-13 02:55 | NUR ---
PT PLACED ON CPAP X2 TONIGHT, SHE DOES DESAT TO MID TO UPPER 80'S WHEN SHE SLEEPS. PT RECOVERS WITH CPAP IN PLACE WITH OXYGEN PLUMBED INTO LINE, CURRENTLY 3L PLUMBED INTO CPAP - SATS WNL. PT HAS REFUSED THE CPAP AT TIMES DURING THE NIGHT, SHE REPORTS SHE FEELS CLAUSTROPHOBIC WITH IT ON. PT HAS HAD THE CPAP IN PLACE FOR APPX 3 HOURS TONIGHT. PT HAS BEEN SLEEPING FOR APPX 5 HOURS TONIGHT. PT AWAKE, WATCHING TV THE REMAINDER OF THE NIGHT. CALL LIGHT WITHIN REACH. BED IN LOW POSITION. FLUIDS AT BEDSIDE.
--- NOTE | 2021-08-13 05:37 | NUR ---
SHIFT SUMMARY - NO ACUTE CHANGES THROUGHOUT THIS SHIFT. PT WORE HER CPAP X2 DURING THE NIGHT - OTHERWISE SHE REFUSED HER CPAP. 3L O2 ON VIA NC TO MAINTAIN HER SATS - 3L O2 IS PT'S HOME BASELINE PER PREVIOUS REPORT. PT HAS A NON-PRODUCTIVE COUGH. RESPIRATIONS HAVE BEEN EVEN AND UNLABORED. NAT BOOTS IN PLACE TO BLE. PT HAS BEEN ABLE TO MAKE HER NEEDS KNOWN THROUGHOUT THE NIGHT. PO FLUIDS WITHIN REACH. BED IN LOW POSITION. CALL LIGHT WITHIN REACH. WILL CONTINUE TO MONITOR UNTIL AM SHIFT CHANGE.
--- NOTE | 2021-08-13 14:48 | NUR ---
1200 PM: Pt awakened, and vital signs taken. Pt has no c/o at this time. Vital signs are stable. Noted that there has been leaking of serous fluid from the left leg, through the augusto wrap and underlying dressings. White chux pad under the pt's left leg is moist. Augusto Wrap and kerlix were removed. Unna boots are still in place from yesterday's placement. Unna boot was not removed, but covered SuperAbsobent Mepitel bandage, then with 2 rolls of kerlix, and new clean AceWrap placed over everything to secure it. The pt tolerated it with some discomfort, but she was not nearly as painful as yesterday she stated, when the initial wound care was done with Unnaboot application.
--- NOTE | 2021-08-13 15:25 | NUR ---
Pt is alert, awake, and asking for food. She was given sandwich, pudding and juice. Also c/o feeling "hot"; temperature was WNL. Given a fan for relief.
--- NOTE | 2021-08-13 16:45 | NUR ---
Assisted pt with repositioning. Also had very moist white chux pad underneath her, and apparent small amount of bloody vaginal discharge. Pt states she still has menses. Anusha care was done, catheter care, and barrier cream applied to her excoriated areas on her rectal/perianal area. She was assisted to reposition comfortably on her left side, and left leg eleated on pillow to pt comfort. HOB elevated to comfort level per pt.
--- NOTE | 2021-08-13 20:19 | NUR ---
CARE ASSUMPTION: RECEIVED REPORT FROM LISETH ALVARADO RN. PATIENT WAS ASLEEP IN ROOM WITH LIGHTS OFF. O2 SAT 95% ON 3L NC, SKIN FLUSHED, NAT BOOTS IN PLACE FOR LOWER LEG EDEMA, AND ROME DRAINING TO GRAVITY.
--- NOTE | 2021-08-13 21:42 | NUR ---
VASCULAR ASSESSMENT: RIGHT FOREARM IV DOES NOT FLUSH.
--- NOTE | 2021-08-14 04:58 | NUR ---
SHIFT SUMMARY: PATIENT MAINTAINED O2 SATS >90% ON 3L NC EXCEPT WHEN ASLEEP. WHEN ASLEEP SHE WOULD OCCASIONALLY DESAT LOW 74%. RT AND THIS RN OFFERED CPAP MULTIPLE TIMES AND SHE REFUSED. RT REQUESTED A CPAP REFUSAL FORM BE COMPLETED AND IT IS IN CHART WAITING FOR PATIENT'S SIGNATURE. PATIENT IS VERY LETHARGIC, PLEASANT WHEN ALERT, BUT DOES NOT ASSIST WITH CARE. BP SYSTOLIC >165 AT 0440, NO HTN PRN MEDS IN EMAR, WILL RECHECK. NO OTHER ADVERSE EVENTS THIS SHIFT. WILL CONTINUE TO MONITOR AND REPORT TO ONCOMING RN.
--- NOTE | 2021-08-14 09:50 | NUR ---
The pt was sleeping without her oxygen on .She is refusing the CPAP; states that it makes her "freak out" when she wakes up later with it on. spo2 noted 81% while asleep without the oxygen administration. She was awakened and oxygen delivery was applied. spo2 no 97% on 3 l/min.
--- NOTE | 2021-08-14 09:55 | NUR ---
Fatou has been pretty somnulent in between care this morning. She awakens easily; however she falls back to sleep whenever she is not engaged in conversation or eating/hygiene care. She states she was not tolerant of the CPAP. States that she only wears the oxygen as needed at home. She requested the oxygen off while she was eating breakfast this morning. She fell asleep later and was not wearing it, so became hypoxic 81% spo2 and she was awakened, given her additional meds, and it was reapplied at this time. Blood pressure remains elevated; meds for this were just given.
[2021-08-14 10:07] LABS: Hematocrit 44.3 % (33.0-51.0); Hemoglobin 14.4 g/dL (11.5-16.0); Mean Corpuscular HGB 28.3 pg (26.0-34.0); Mean Corpuscular HGB Conc 32.5 g/dL (31.5-36.5); Mean Corpuscular Volume 87 fL (80-100); NRBC ABSOLUTE 0.03 K/mm3 (0.00-0.02); NRBC Auto 0.2 /100 WBC (0.0-0.2); RDW Coefficient Variation 14.2 % (11.7-14.2); RDW Standard Deviation 45.6 fL (35.1-46.3); Red Blood Cell Count 5.08 M/mm3 (3.80-5.20); White Blood Cell Count 15.53 K/mm3 (4.00-11.30)
[2021-08-14 10:08] LABS: Platelet Count 239 K/mm3 (150-400)
[2021-08-14 10:38] LABS: Alanine Aminotransfer (ALT/SGP 72 U/L (12-78); Albumin, Blood 1.9 g/dL (3.4-5.0); Albumin/Globulin Ratio 0.4 (0.8-1.8); Alk Phos 187 U/L (50-136); Anion Gap 6 mmol/L (6-16); Aspartate Aminotrans (AST/SGOT 44 U/L (12-37); Bilirubin, Total 0.4 mg/dL (0.1-1.0); Blood Urea Nitrogen 34 mg/dL (8-24); Bun/Creatinine Ratio 41.1 (12.0-20.0); CO2, Blood 29 mmol/L (21-32); Chloride, Blood 105 mmol/L (98-108); Creatinine, Blood 0.83 mg/dL (0.40-1.00); Globulin, Blood 4.6 g/dL (2.2-4.0); Glomerular Filtration Rate >60 (60-); Glucose, Blood 236 mg/dL (70-99); Potassium, Blood 4.9 mmol/L (3.5-5.5); Sodium, Blood 140 mmol/L (136-145); Total Protein, Blood 6.5 g/dL (6.4-8.2)
[2021-08-14 10:45] LABS: BAND PERCENT MAN 3 % (0-8); BASOPHILS PERCENT MAN 0 % (0-2); EOSINOPHILS ABSOLUTE MAN 0.15 K/mm3 (0.00-0.68); EOSINOPHILS PERCENT MAN 1 % (0-6); LYMPHOCYTES % ATYPICAL MANUAL 5 % (0-0); LYMPHOCYTES ABSOLUTE MAN 2.32 K/mm3 (0.84-5.20); LYMPHOCYTES PERCENT MAN 10 % (21-46); MONOCYTES ABSOLUTE MAN 0.31 K/mm3 (0.16-1.47); MONOCYTES PERCENT MAN 2 % (4-13); NEUTROPHILS ABSOLUTE MAN 12.73 K/mm3 (1.96-9.15); SEG NEUTROPHILS PERCENT MAN 79 % (41-73); TOTAL CELLS COUNTED 100
--- NOTE | 2021-08-14 11:53 | NUR ---
Pt is sleeping most of the day so far. I awakened her for vital signs. Blood pressure still quite elevated, so PRN labetolol was given per orders. I commented to pt about how much she is sleeping today; she became tearful, says that she feels depressed because her boyfriend won't come to visit her. Spiritual care visit requested.
--- NOTE | 2021-08-14 13:13 | NUR ---
Spiritual care copy center specialist here with the patient. IVPB Vancomycin still infusing. There was an interruption due to a line occlusion.
--- NOTE | 2021-08-14 14:01 | NUR ---
At the referral of the nursing staff, a spiritual care visit took place. Pt. was unsettled about family unit dysfunction, and support system deficits. Provided a calming presence through theraputic listening. During my visit the pt. participated [facility] assistance. Prior to the phone interview, prayed the pt. Pt. requested that I stay during the interview for support, and in the event that she became confused. Pt. answered the interviewers questions clearly. After the interview, prayed with the pt. once again. Pt. displayed evidence of reduced stress. Pt. verbalized gratitude for the presence of spiritual care, and requested I follow up tomorrow.
--- NOTE | 2021-08-14 14:16 | NUR ---
Yesterday I met with the patient in her room to assess her previous living situation and discuss a safe discharge plan. Patient would like to establish residence in an assisted living facility. I gave her the [employer] office number to call and apply for long-term care benefits. Patient already has [facility]. I called [employer] this morning and the patient had not yet applied to I scheduled a phone interview with [employer] at 1:15PM this afternoon, which Ning Villarreal assisted her with. I plan to follow-up with the patient and [employer] tomorrow regarding eligibility. I have also faxed a referral to Naomy Robledo with [place] for LTC placement at [facility].
--- NOTE | 2021-08-14 15:49 | NUR ---
Call to Dr. Marie regarding pt's persistently high blood pressure, despite changes in antihypertensive medications taken this morning. New order received at this time.
--- NOTE | 2021-08-14 20:49 | NUR ---
CARE ASSUMPTION: PATIENT ASLEEP IN BED WEARING CLEAN HOSPITAL GOWN. SKIN IS FLUSHED, O2 >90% ON 3L NC, FAN ON FACE. PATIENT HAS BEEN HYPERTENSIVE T/O THE DAY. MD PUT IN NEW MED ORDERS TO MANAGE.
[2021-08-14 22:53] LABS: Vancomycin, Trough 19.8 ug/mL (5.0-10.0)
[2021-08-15 03:58] LABS: BASOPHILS ABSOLUTE AUTO 0.18 K/mm3 (0.00-0.23); BASOPHILS PERCENT AUTO 1 % (0-2); Hematocrit 43.1 % (33.0-51.0); Hemoglobin 13.1 g/dL (11.5-16.0); LYMPHOCYTES ABSOLUTE AUTO 1.17 K/mm3 (0.84-5.20); LYMPHOCYTES PERCENT AUTO 8 % (21-46); MONOCYTES ABSOLUTE AUTO 0.76 K/mm3 (0.16-1.47); MONOCYTES PERCENT AUTO 5 % (4-13); Mean Corpuscular HGB 27.9 pg (26.0-34.0); Mean Corpuscular HGB Conc 30.4 g/dL (31.5-36.5); Mean Platelet Volume 10.2 fL (9.1-12.4); NRBC ABSOLUTE 0.02 K/mm3 (0.00-0.02); NRBC Auto 0.1 /100 WBC (0.0-0.2); Platelet Count 409 K/mm3 (150-400); RDW Coefficient Variation 14.4 % (11.7-14.2); RDW Standard Deviation 48.7 fL (35.1-46.3); White Blood Cell Count 15.27 K/mm3 (4.00-11.30)
[2021-08-15 04:12] LABS: EOSINOPHILS ABSOLUTE AUTO 0.01 K/mm3 (0.00-0.68); EOSINOPHILS PERCENT AUTO 0 % (0-6); IMMATURE GRAN ABSOLUTE AUTO 2.04 K/mm3 (0.00-0.10); IMMATURE GRAN PERCENT AUTO 13 % (0-1); Mean Corpuscular Volume 92 fL (80-100); NEUTROPHILS ABSOLUTE AUTO 11.11 K/mm3 (1.96-9.15); NEUTROPHILS PERCENT AUTO 73 % (41-73)
[2021-08-15 04:15] LABS: Alanine Aminotransfer (ALT/SGP 69 U/L (12-78); Albumin, Blood 2.1 g/dL (3.4-5.0); Albumin/Globulin Ratio 0.5 (0.8-1.8); Alk Phos 191 U/L (50-136); Anion Gap 5 mmol/L (6-16); Aspartate Aminotrans (AST/SGOT 29 U/L (12-37); Bilirubin, Total 0.5 mg/dL (0.1-1.0); Blood Urea Nitrogen 34 mg/dL (8-24); Bun/Creatinine Ratio 43.1 (12.0-20.0); CO2, Blood 30 mmol/L (21-32); Calcium, Blood 9.1 mg/dL (8.5-10.1); Chloride, Blood 104 mmol/L (98-108); Creatinine, Blood 0.79 mg/dL (0.40-1.00); Globulin, Blood 4.5 g/dL (2.2-4.0); Glomerular Filtration Rate >60 (60-); Glucose, Blood 273 mg/dL (70-99); Potassium, Blood 5.5 mmol/L (3.5-5.5); Sodium, Blood 139 mmol/L (136-145); Total Protein, Blood 6.6 g/dL (6.4-8.2)
--- NOTE | 2021-08-15 05:42 | NUR ---
SHIFT SUMMARY: PATIENT MAINTAINED O2 SATS >90% UNLESS SLEEPING. NC SLIPPED OUT OF HER NARES T/O NIGHT, SATS STAYED >87% W/O O2. PATIENT REFUSED REPOSITIONING T/O SHIFT. PATIENT WAS BOOSTED IN BED AND LINENS CHANGED AT 0500. ABRAHAN IV WAS D/C'D DUE TO LEAKING AND ECCHYMOSIS. ONE INSTANCE OF HTN, MEDICATED PER EMAR. WILL CONTINUE TO MONITOR AND REPORT TO ONCOMING RN.
--- NOTE | 2021-08-15 08:16 | NUR ---
Per Naomy Robledo with [place] [facility] at [facility], patient denied LTC placement due to patient's weight and the facility being at bariatric patient limit. I faxed the patient packet to Emilio Henry at [facility] this morning for review regarding LTC placement.
--- NOTE | 2021-08-15 13:12 | NUR ---
UPDATE: ELEVATED BP, NO RELIEF WITH PRN MEDS.CALL PLACED TO DR. LYNN TO UPDATE ON ELEVATED BP. NEW ORDERS PLACED. WILL CONTINUE TO MONITOR BP.
--- NOTE | 2021-08-15 15:17 | NUR ---
Pt. is alert and in bed. Quickly welcomes me for a visit. Pt. seems unsettled about her blood pressure. Provide a calming influence and redirect conversation. Pt. is soon expecting a visit from SO. Prayed with Pt. at the request of the Pt. Pt. displays evidence of renewed hope. Pt. verbalized gratitude for the spiritual care visit.
--- NOTE | 2021-08-15 15:35 | NUR ---
UPDATE: BP REMAINS ELEVATED. DR. LYNN AWARE. NEW MEDS ORDERED, CONT. TO MONITOR. PATIENT DENIES HEADACHE OR OTHER HTN SYMPTOMS. SLEEPING ON AND OFF. VISITOR IN ROOM AT THIS TIME. ANTIBIOTICS INFUSING. WILL CONT TO MONITOR.
--- NOTE | 2021-08-15 18:00 | NUR ---
SHIFT SUMMARY: PATIENT ALERT AND ORIENTED X3-4. SLEEPING ON AND OFF THROUGHOUT THE DAY, WAKES EASILY. DENIES NUMBNESS/TINGLING. PERRLA. OVERALL VERY WEAK. NEEDS HELP TURNING AND MOVING IN BED. Q2 TURNING. ON 3L NASAL CANNULA SATING MID 90'S. BASELINE OXYGEN. NO COUGHING. TELE SHOWS SINUS RHYTHM WITH A BUNDLE SWITCH TODAY, SEE TELE STRIPS IN CHART. HR 80-90'S. DENIES CHEST PAIN/PRESSURE. BP ELEVATED, BUT TRENDING DOWN AT THIS TIME. DR. LYNN AWARE, CONTINUEING TO MONITOR. PATIENT DENIES HTN SYMPTOMS. ONE BOWEL MOVEMENT THIS SHIFT. TOLERATING PO DIET. ROME CATH REMAIN IN PLACE DRAINING CLEAR/YELLOW URINE TO GRAVITY. GOOD OUTPUT. SKIN OVERALL RED AND WARM TO TOUCH. TEMP WNL. REDNESS/EXCORIATIONS IN FOLDS. CLEANED AND POWDER APPLIED THROUGHOUT SHIFT. NAT BOOTS REPLACED TODAY, AND TO BE CHANGED 2X WEEKLY, SEE EMAR. LEFT BLE WOUND, SILVADENE APPLIED AND NAT BOOT WRAPPED. BLE WEEPING. PATIENT DENIES PAIN. SIGNIFICANT OTHER IN TO VISIT THIS EVENING. WILL CONITNUE TO MONITOR AND REPORT OFF. ANTIBIOTICS INFUSED THIS SHIFT. POWERGLIDE TO RIGHT UPPER ARM FLUSHING WELL, NOT DRAWING - ENVELOPE FOLDER IN TO CHECK PATENCY. USING CALL LIGHT. BED IN LOW LOCKED POSITION.
[2021-08-15 22:32] LABS: Vancomycin, Trough 18.2 ug/mL (5.0-10.0)
--- NOTE | 2021-08-16 03:37 | NUR ---
UABLE TO WEIGH PT. BED SCALE NOT WORKING. PT DOES NOT HAVE A WEIGHT.
--- NOTE | 2021-08-16 05:38 | NUR ---
SHIFT SUMMARY PT IS ALERT AND ORIENTED. PT DENIES CHEST PAIN/PRESSURE OR SOB. BP HAS BEEN ELEVATED AND MEDICATED PER ORDER. HR, SPO2 AND TEMP HAVE BEEN STABLE. THERE HAVE BEEN NO OTHER ACUTE CHANGES. PT HAS BEEN SLEEPY T/O SHIFT AND HAS REFUSED REPOSITIONING. PT WAS ABLE TO GET CLEANED UP THIS MORNING AND REPOSITIONING AND WAS COOPERATIVE. PT REPORTED PAIN IN LEFT LEG AND WAS MEDICATED PER EMAR. ROME IN PLACE AND DRAINING TO GRAVITY. CALL LIGHT IS WITHIN REACH.
--- NOTE | 2021-08-16 10:57 | NUR ---
AM NOTE: ALERT AND ORIENTED X4. NEURO WNL. PERRLA. DENIES NUMBNESS/TINGLING. OVERALL WEAK AND LIMITED RANGE OF MOTION. ON 3L NASAL CANNULA AT THIS TIME, LUNGS SOUNDING CLEAR AND DIM. DENIES SOB. TELE SHOWING SINUS RHYTHM WITH HR 80'S. BP STILL ELEVATED BUT TRENDING DOWN. DENIES CHEST PAIN/PRESSURE. DENIES HEADACHE. 1 BOWEL MOVEMENT THIS AM VIA BEDPAN. ROME CATH IN PLACE DRAINING CLEAR YELLOW URINE. CATH CARE COMPLETED. SKIN DRY AND FLAKEY, FOLDS RED, EXORIATIONS TO [place] AREA. CLEANED AND POWDERED. NAT BOOTS REMAIN IN PLACE, NO WEEPING OBSERVED. PATIENT DENIES PAIN. TOLERATING PO DIET. SLEEPING AT THIS TIME. WILL CONTINUE TO MONITOR. CALL LIGHT IN REACH.
--- NOTE | 2021-08-16 15:52 | NUR ---
UPDATE: RIGHT POWERGLIDE INFILTRATION WITH MERREM INJECTION. PHARMACY CALLED TO ASK ABOUT INFILTRATION SITE CARE. NO MEDS TO INJECT AT SITE OR RECCOMENDATIONS AT THIS TIME. SLIGHT REDNESS AND ITCHY PER PATIENT. POWERGLIDE REMOVED, ICE APPLIED. WILL CONTINUE TO MONITOR.
--- NOTE | 2021-08-16 17:55 | NUR ---
SHIFT SUMMARY: NO ACUTE CHANGES. SEE PREVIOUS NOTES. REMAINS ON 3L NASAL CANNULA. TELE REMAINS UNCHANGED. NEW IV PLACED IN LEFT UPPER ARM. PATIENT EMOTIONAL UNCLE IS ALSO ANOTHER PATIENT HERE IN THE HOSPITAL. AUNT IN TO VISIT. EATING WELL. GOOD OUTPUT. 1 BOWEL MOVEMENT THIS SHIFT. ROME CONTINUES TO DRAIN CLEAR/YELLOW URINE. PHYSICAL THERAPY IN TO SEE PATIENT. GOAL FOR TOMORROW IS TO GET PATIENT UP IN RECLINER. DENIES NEEDS AT THIS TIME. BP IMRPOVED THROUGHOUT SHIFT. WILL CONTINUE TO MONITOR AND REPORT OFF.
[2021-08-17 03:42] LABS: Hematocrit 45.6 % (33.0-51.0); Hemoglobin 14.1 g/dL (11.5-16.0); Mean Corpuscular HGB 28.2 pg (26.0-34.0); Mean Corpuscular HGB Conc 30.9 g/dL (31.5-36.5); Mean Corpuscular Volume 91 fL (80-100); Mean Platelet Volume 10.3 fL (9.1-12.4); NRBC ABSOLUTE 0.06 K/mm3 (0.00-0.02); NRBC Auto 0.4 /100 WBC (0.0-0.2); Platelet Count 442 K/mm3 (150-400); RDW Coefficient Variation 14.5 % (11.7-14.2); RDW Standard Deviation 48.3 fL (35.1-46.3); White Blood Cell Count 14.66 K/mm3 (4.00-11.30)
[2021-08-17 04:06] LABS: Albumin, Blood 2.2 g/dL (3.4-5.0); Anion Gap 5 mmol/L (6-16); Blood Urea Nitrogen 31 mg/dL (8-24); Bun/Creatinine Ratio 45.3 (12.0-20.0); CO2, Blood 34 mmol/L (21-32); Chloride, Blood 99 mmol/L (98-108); Creatinine, Blood 0.68 mg/dL (0.40-1.00); Glomerular Filtration Rate >60 (60-); Glucose, Blood 185 mg/dL (70-99); Phosphorus, Blood 3.3 mg/dL (2.5-4.9); Potassium, Blood 4.4 mmol/L (3.5-5.5); Sodium, Blood 138 mmol/L (136-145)
[2021-08-17 04:14] LABS: BAND PERCENT MAN 6 % (0-8); BASOPHILS PERCENT MAN 0 % (0-2); EOSINOPHILS PERCENT MAN 0 % (0-6); LYMPHOCYTES ABSOLUTE MAN 2.34 K/mm3 (0.84-5.20); LYMPHOCYTES PERCENT MAN 16 % (21-46); METAMYELOCYTE ABSOLUTE MAN 0.58 K/mm3 (0.00-0.00); METAMYELOCYTE PERCENT MAN 4 % (0-0); MONOCYTES ABSOLUTE MAN 0.87 K/mm3 (0.16-1.47); MONOCYTES PERCENT MAN 6 % (4-13); MYELOCYTE ABSOLUTE MAN 0.43 K/mm3 (0.00-0.00); MYELOCYTE PERCENT MAN 3 % (0-0); SEG NEUTROPHILS PERCENT MAN 65 % (41-73); TOTAL CELLS COUNTED 100
--- NOTE | 2021-08-17 05:33 | NUR ---
SHIFT SUMMARY PT IS ALERT AND ORIENTED. THERE HAVE BEEN NO ACUTE CHANGES T/O THE NIGHT. VITALS ARE STABLE. PT IS ON 3L NC WITH SATS ABOVE 92%. PT HAS BEEN COOPERATIVE WITH CARE AND IS ABLE TO MAKE NEEDS KNOWN. PT HAS BEEN VERY SLEEPY MOST OF THE NIGHT. ROME IN PLACE AND DRAINING TO GRAVITY. CALL LIGHT IS WITHIN REACH.
--- NOTE | 2021-08-17 10:05 | NUR ---
AM NOTE/TRANSFER: PATIENT ALERT AND ORIENTED X4. NEURO WNL. NO TELE AT THIS TIME. BP STABLE. DR. LYNN BY THIS AM. DISCUSSED BLOOD PRESSURE MED CHANGES, NAT BOOTS, AND ANTBIOTICS. REMAINS ON 3L NASAL CANNULA, BASELINE. MERREM INFUSED THIS AM. ONE BOWEL MOVMENT. ROME REMAINS IN PLACE DRAINING CLEAR/YELLOW URINE. LUNGS SONDING CLEAR AND DIM. PATIENT DENIES PAIN. VITAL SIGNS STABLE. PATIENT TRANSFERRED UP TO MEDICAL FLOOR WITH ALL PERSONAL BELONGINGS AT THIS TIME.
--- NOTE | 2021-08-17 18:23 | NUR ---
Patient was transferred from PCU at 10am. SHe has been alert and orient and pleasant throughout the shift. She was able to express her needs by using the call light. She had family at bedside throughout the day. Patient was compliant with taking medications and requested no prns. SHe is on oral ABX as her powerglide picc infiltrated yesterday. She still has L PIV intact, SL. Patient cannot ambulate. She came from home and has not ambulated in over a month. Therapy will work with her tomorrow as they have worked with her on PCU. Cont to monitor patient while on the unit
--- NOTE | 2021-08-18 04:35 | NUR ---
GAME TECHNICIAN SUMMARY ADMITTED FOR BLE CELLULITIS. SHE IS FULL CODE. UNABOOTS IN PLACE TO BLE - C/D/I. PT HAD 5/10 HEADACHE PAIN THAT RESOLVED WITH COOL WASHCLOTH AND TYLENOL. SHE IS ON BEDREST AND A LIFT PATIENT. ALERT AND ORIENTED X4 AND PLEASANT. PT HAS BEEN HAVING SOME DIARRHEA SO HER COLACE WAS REFUSED LAST NIGHT. PT AWAITING SNF FOR REHAB.
[2021-08-18 05:51] LABS: Hematocrit 48.2 % (33.0-51.0); Hemoglobin 14.8 g/dL (11.5-16.0); Mean Corpuscular HGB 28.3 pg (26.0-34.0); Mean Corpuscular HGB Conc 30.7 g/dL (31.5-36.5); Mean Corpuscular Volume 92 fL (80-100); Mean Platelet Volume 9.8 fL (9.1-12.4); NRBC ABSOLUTE 0.03 K/mm3 (0.00-0.02); NRBC Auto 0.2 /100 WBC (0.0-0.2); Platelet Count 421 K/mm3 (150-400); RDW Coefficient Variation 14.7 % (11.7-14.2); RDW Standard Deviation 49.6 fL (35.1-46.3); Red Blood Cell Count 5.23 M/mm3 (3.80-5.20); White Blood Cell Count 13.89 K/mm3 (4.00-11.30)
[2021-08-18 06:13] LABS: Albumin, Blood 2.4 g/dL (3.4-5.0); Anion Gap 5 mmol/L (6-16); Blood Urea Nitrogen 30 mg/dL (8-24); Bun/Creatinine Ratio 43.2 (12.0-20.0); CO2, Blood 33 mmol/L (21-32); Calcium, Blood 9.5 mg/dL (8.5-10.1); Chloride, Blood 100 mmol/L (98-108); Glomerular Filtration Rate >60 (60-); Glucose, Blood 165 mg/dL (70-99); Phosphorus, Blood 3.6 mg/dL (2.5-4.9); Potassium, Blood 4.6 mmol/L (3.5-5.5); Sodium, Blood 138 mmol/L (136-145)
[2021-08-18 06:31] LABS: BAND PERCENT MAN 2 % (0-8); BASOPHILS PERCENT MAN 0 % (0-2); EOSINOPHILS ABSOLUTE MAN 0.41 K/mm3 (0.00-0.68); EOSINOPHILS PERCENT MAN 3 % (0-6); LYMPHOCYTES ABSOLUTE MAN 1.66 K/mm3 (0.84-5.20); LYMPHOCYTES PERCENT MAN 12 % (21-46); MONOCYTES ABSOLUTE MAN 0.41 K/mm3 (0.16-1.47); MONOCYTES PERCENT MAN 3 % (4-13); MYELOCYTE ABSOLUTE MAN 0.27 K/mm3 (0.00-0.00); MYELOCYTE PERCENT MAN 2 % (0-0); NEUTROPHILS ABSOLUTE MAN 11.11 K/mm3 (1.96-9.15); SEG NEUTROPHILS PERCENT MAN 78 % (41-73); TOTAL CELLS COUNTED 100
--- NOTE | 2021-08-18 11:27 | NUR ---
Last week patient was denied at [facility] for LTC placement due to them being at capacity for bariatric patients. I also faxed Emilio Henry at [facility] a patient packet referral for LTC placement. I reached out this morning requesting an update on possible placement.
--- NOTE | 2021-08-18 16:40 | NUR ---
Patient was alert and orient, she spent minimal time with PT/OT. Patient was in good spirits and mood was congruent. Patient was able to express her needs by using call light. Patient had three diarrhea BM, RN notified provider and he ordered Cdiff lab and patient inquired about mylanta for her "sour stomach". Patient had no complaints of pain and did not want to take her 2pm ABX. She stated that she will take them later. Patient legs were wrapped with the unni boots and will be removed and rewrapped by the provider tomorrow.
[2021-08-19 06:13] LABS: Hematocrit 48.7 % (33.0-51.0); Hemoglobin 15.2 g/dL (11.5-16.0); Mean Corpuscular HGB 27.8 pg (26.0-34.0); Mean Corpuscular HGB Conc 31.2 g/dL (31.5-36.5); Mean Corpuscular Volume 89 fL (80-100); RDW Coefficient Variation 14.6 % (11.7-14.2); RDW Standard Deviation 47.2 fL (35.1-46.3); Red Blood Cell Count 5.47 M/mm3 (3.80-5.20); White Blood Cell Count 13.53 K/mm3 (4.00-11.30)
[2021-08-19 06:33] LABS: Mean Platelet Volume 10.2 fL (9.1-12.4)
[2021-08-19 06:37] LABS: BAND PERCENT MAN 1 % (0-8); BASOPHILS PERCENT MAN 0 % (0-2); EOSINOPHILS PERCENT MAN 0 % (0-6); LYMPHOCYTES ABSOLUTE MAN 1.89 K/mm3 (0.84-5.20); LYMPHOCYTES PERCENT MAN 14 % (21-46); MONOCYTES ABSOLUTE MAN 0.94 K/mm3 (0.16-1.47); MONOCYTES PERCENT MAN 7 % (4-13); MYELOCYTE PERCENT MAN 3 % (0-0); NEUTROPHILS ABSOLUTE MAN 10.28 K/mm3 (1.96-9.15); SEG NEUTROPHILS PERCENT MAN 75 % (41-73); TOTAL CELLS COUNTED 100
[2021-08-19 06:40] LABS: Platelet Count 401 K/mm3 (150-400)
[2021-08-19 06:46] LABS: Albumin, Blood 2.6 g/dL (3.4-5.0); Anion Gap 8 mmol/L (6-16); Blood Urea Nitrogen 27 mg/dL (8-24); Bun/Creatinine Ratio 39.2 (12.0-20.0); CO2, Blood 29 mmol/L (21-32); Calcium, Blood 9.4 mg/dL (8.5-10.1); Chloride, Blood 99 mmol/L (98-108); Creatinine, Blood 0.69 mg/dL (0.40-1.00); Glomerular Filtration Rate >60 (60-); Glucose, Blood 178 mg/dL (70-99); Phosphorus, Blood 3.8 mg/dL (2.5-4.9); Potassium, Blood 4.6 mmol/L (3.5-5.5); Sodium, Blood 136 mmol/L (136-145)
--- NOTE | 2021-08-19 15:45 | NUR ---
Per Emilio Henry with [facility], patient appropriate for LTC placement with and will be acceptable to transfer once assigned a laborer plumbing at [facility]. I have contacted [facility] again to inquire who has been assigned to patient's case and no one has yet. I have requested this be resolved due to this being the only barrier to patient having placement with [facility]. [facility] to call when patient has been assigned.
--- NOTE | 2021-08-19 20:14 | NUR ---
SHIFT SUMMARY PT IS A&O, PLEASANT AND CO-OP. ABLE TO MAKE NEEDS KNOWN. PT CALLED FOR BEDPAN FOR BM THIS AM, BUT UNSUCCESSFUL. PT CLEANED AND BED BATH GIVEN. PT ASSISTED UP TO RECLINER CHAIR VIA LIFT AND REMAINED THERE FOR SEVERAL HOURS. PT ABLE TO WORK WITH PT/OT WHILE UP IN CHAIR. PT LATER REQUESTING TO GET BACK IN BED FOR BM. PT ASSISTED BACK TO BED VIA LIFT. DR LYNN CALLED THIS EVENING TO REQUEST NAT BOOTS TO BE CHANGED. PT REPORTED LEGS MUCH IMPROVED AND MUCH SMALLER; SWELLING GREATLY DECREASED. PICTURES TAKEN OF LLE WOUND AREA ONLY, BUT BOTH LEGS MUCH BETTER SINCE ADMISSION PICTURES. PT TO D/C TO SNF WHEN MEDICALLY STABLE AND BED AVAILABLE. CALL LT IN REACH.
[2021-08-20 05:59] LABS: BASOPHILS PERCENT AUTO 1 % (0-2); EOSINOPHILS ABSOLUTE AUTO 0.19 K/mm3 (0.00-0.68); EOSINOPHILS PERCENT AUTO 1 % (0-6); Hematocrit 46.6 % (33.0-51.0); Hemoglobin 14.7 g/dL (11.5-16.0); IMMATURE GRAN ABSOLUTE AUTO 0.74 K/mm3 (0.00-0.10); IMMATURE GRAN PERCENT AUTO 6 % (0-1); LYMPHOCYTES ABSOLUTE AUTO 1.97 K/mm3 (0.84-5.20); LYMPHOCYTES PERCENT AUTO 15 % (21-46); MONOCYTES ABSOLUTE AUTO 1.09 K/mm3 (0.16-1.47); MONOCYTES PERCENT AUTO 8 % (4-13); Mean Corpuscular HGB 28.6 pg (26.0-34.0); Mean Corpuscular HGB Conc 31.5 g/dL (31.5-36.5); Mean Corpuscular Volume 91 fL (80-100); NEUTROPHILS ABSOLUTE AUTO 9.15 K/mm3 (1.96-9.15); NEUTROPHILS PERCENT AUTO 69 % (41-73); Platelet Count 408 K/mm3 (150-400); RDW Coefficient Variation 14.5 % (11.7-14.2); RDW Standard Deviation 47.6 fL (35.1-46.3); Red Blood Cell Count 5.14 M/mm3 (3.80-5.20); White Blood Cell Count 13.24 K/mm3 (4.00-11.30)
[2021-08-20 06:17] LABS: Albumin, Blood 2.6 g/dL (3.4-5.0); Anion Gap 5 mmol/L (6-16); Blood Urea Nitrogen 32 mg/dL (8-24); Bun/Creatinine Ratio 41.9 (12.0-20.0); CO2, Blood 32 mmol/L (21-32); Calcium, Blood 9.5 mg/dL (8.5-10.1); Chloride, Blood 101 mmol/L (98-108); Creatinine, Blood 0.76 mg/dL (0.40-1.00); Glomerular Filtration Rate >60 (60-); Glucose, Blood 158 mg/dL (70-99); Phosphorus, Blood 3.7 mg/dL (2.5-4.9); Potassium, Blood 4.6 mmol/L (3.5-5.5); Sodium, Blood 138 mmol/L (136-145)
--- NOTE | 2021-08-20 12:59 | NUR ---
Called and spoke with [employer], type mapper assigned to patient is Sharri Lopez [phone]. Spoke with Sharri Lopez and she states patient is appropriate for LTC benefits, although per their assessments patient has no income. They are awaiting their financial assessment to come back on 08/29. Relayed this update to Emilio Henry at , who says she should be fine to transfer and has sent a PA to [facility]. Placement is pending [facility] auth.
--- NOTE | 2021-08-20 15:47 | NUR ---
Visited with patient in her room who reports she is feeling better today. She was sitting in the recliner next to her bed, alert and pleasant. Discussed discharge plan with patient, that has accepted her, pending auth from [facility]. Patient agreeable to discharge plan, denies barriers at this time.
--- NOTE | 2021-08-20 16:41 | NUR ---
Edwin from [facility] called stating [facility] approved auth for patient regarding LTC placement at [facility]. I called [facility] and scheduled gurney transport with [facility] at Noon tomorrow. Confirmed DC plan with Dr. Malhotra.
--- NOTE | 2021-08-20 17:38 | NUR ---
SUMMARY PT UP IN THE CHAIR A THE BEDSIDE, PT HAS BEEN PLEASANT AND COOPERATIVE WITH CARE, PT UP WITH THE LIFT, PT HAS WORKED WITH PT/OT, WAS ABLE TO GET UP ON THE COMMODE WITH 2P ASSIST, WALKER AND GAIT BELT, PT CINTIA WELL, FAMILY HAS BEEN IN TO VISIT, POSSIBLE PLAN TO DC TO SNF TOMORROW, VSS, WILL CONT TO MONITOR
[2021-08-21 05:15] LABS: BASOPHILS ABSOLUTE AUTO 0.05 K/mm3 (0.00-0.23); BASOPHILS PERCENT AUTO 0 % (0-2); EOSINOPHILS ABSOLUTE AUTO 0.18 K/mm3 (0.00-0.68); EOSINOPHILS PERCENT AUTO 1 % (0-6); Hematocrit 45.6 % (33.0-51.0); Hemoglobin 14.2 g/dL (11.5-16.0); IMMATURE GRAN ABSOLUTE AUTO 0.47 K/mm3 (0.00-0.10); IMMATURE GRAN PERCENT AUTO 4 % (0-1); LYMPHOCYTES PERCENT AUTO 15 % (21-46); MONOCYTES ABSOLUTE AUTO 1.13 K/mm3 (0.16-1.47); MONOCYTES PERCENT AUTO 8 % (4-13); Mean Corpuscular HGB 28.2 pg (26.0-34.0); Mean Corpuscular HGB Conc 31.1 g/dL (31.5-36.5); Mean Corpuscular Volume 91 fL (80-100); Mean Platelet Volume 10.3 fL (9.1-12.4); NEUTROPHILS ABSOLUTE AUTO 9.64 K/mm3 (1.96-9.15); NEUTROPHILS PERCENT AUTO 72 % (41-73); Platelet Count 341 K/mm3 (150-400); RDW Coefficient Variation 14.7 % (11.7-14.2); RDW Standard Deviation 48.6 fL (35.1-46.3); Red Blood Cell Count 5.03 M/mm3 (3.80-5.20); White Blood Cell Count 13.47 K/mm3 (4.00-11.30)
[2021-08-21 06:05] LABS: Albumin, Blood 2.6 g/dL (3.4-5.0); Anion Gap 6 mmol/L (6-16); Blood Urea Nitrogen 46 mg/dL (8-24); Bun/Creatinine Ratio 39.3 (12.0-20.0); CO2, Blood 30 mmol/L (21-32); Calcium, Blood 9.3 mg/dL (8.5-10.1); Chloride, Blood 101 mmol/L (98-108); Creatinine, Blood 1.17 mg/dL (0.40-1.00); Glomerular Filtration Rate 49 (60-); Glucose, Blood 166 mg/dL (70-99); Potassium, Blood 4.8 mmol/L (3.5-5.5); Sodium, Blood 137 mmol/L (136-145)
[2021-08-21 09:16] LABS: Influenza A, PCR NEGATIVE (NEGATIVE); Influenza B, PCR NEGATIVE (NEGATIVE); Resp Syncytial Virus, PCR NEGATIVE (NEGATIVE); SARS-Cov-2 (COVID-19) PCR, MMC NEGATIVE (NEGATIVE)
[2021-08-21] MEDS ORDERED: AMLO5 PO (10:49)
[2021-08-21] MEDS ORDERED: Cleocin HCl150 MG PO (10:52)
[2021-08-21] MEDS ORDERED: HYDCHL25 PO (10:54)
[2021-08-21] MEDS ORDERED: FAMO20 PO (10:54)
[2021-08-21] MEDS ORDERED: Prinivil10 MG PO (10:55)
[2021-08-21] MEDS ORDERED: VISBIOME 112.51 EACH PO (10:56)
--- NOTE | 2021-08-21 12:19 | NUR ---
PT DISCHARGED PT TRANSFERED TO [facility]. PT TRANSFERED VIA RNEY USEING A LIFT. THE PT APPEARED TO BE BREATHING EASILY ON RA AT THIS TIME. REPORT CALLED TO [facility]. ROME CATHETER IN PLACE AND DRAINING
--- NOTE | 2021-08-21 12:55 | NUR ---
Per chart review with Dr. Malhotra, patient appropriate for discharge to [facility]. This CM scheduled gurney transport through [facility], transport time was noon. [facility] provided transportation. Negative covid, discharge orders, discharge med rec all faxed to Edwin Guardado at [facility]. Patient and patient's nurse consulted regarding transport time and discharge plan. All in agreement to discharge plan, deny barriers.
== END 2021-08-21 12:10 | DRG 871 ==
LOC: ER 20:07 → PCU 23:52 → MEDS 08-17 10:11
PROVIDERS: Emergency Medicine; Family Medicine; Hospitalist; Pharmacist; ADMIT Internal Medicine
DX: A41.9 Sepsis, unspecified organism (principal); J96.01 Acute respiratory failure with hypoxia; L03.116 Cellulitis of left lower limb; N17.9 Acute kidney failure, unspecified; L03.115 Cellulitis of right lower limb; I13.0 Hypertensive heart and chronic kidney disease with heart failure and stage 1 through stage 4 chronic kidney disease, or unspecified chronic kidney disease; I50.32 Chronic diastolic (congestive) heart failure; E87.1 Hypo-osmolality and hyponatremia; E66.2 Morbid (severe) obesity with alveolar hypoventilation; N39.0 Urinary tract infection, site not specified; Z68.44 Body mass index [BMI] 60.0-69.9, adult; I89.0 Lymphedema, not elsewhere classified; Z88.1 Allergy status to other antibiotic agents; Z20.822 Contact with and (suspected) exposure to COVID-19; K21.9 Gastro-esophageal reflux disease without esophagitis; N18.30 Chronic kidney disease, stage 3 unspecified; K75.81 Nonalcoholic steatohepatitis (NASH)
CPT/HCPCS: 0241U; 36415; 51702; 71045; 73701; 76705; 76770; 80053; 80069; 80202; 81001; 83605; 83735; 83880; 84100; 84145; 85025; 86140; 87040; 87086; 94660; 94760; 94762; 96365; 96366; 96367; 96372; 96375; 97110; 97162; 97164; 97166; 97530; 97535; 99285-25; A9270; C1751; C8929; J0696; J1650; J2185; J2920; J2930; J3010; J3370; J7030; J7050; J7120; J7509; Q9957; Q9967

== ENCOUNTER 2021-10-08 14:00 | Emergency (ER) | payer OTHER ==
[~2021-10-08] VITALS: Ht 162.6 cm; Wt 157.8 kg
[~2021-10-08 14:00] MED LIST changes: +AMLO5 PO; +Atarax10 MG PO; +Cleocin HCl150 MG PO; +FAMO20 PO; +HYDCHL25 PO; +Prinivil10 MG PO
[2021-10-08 14:36] LABS: BASOPHILS ABSOLUTE AUTO 0.06 K/mm3 (0.00-0.23); BASOPHILS PERCENT AUTO 1 % (0-2); EOSINOPHILS ABSOLUTE AUTO 0.29 K/mm3 (0.00-0.68); EOSINOPHILS PERCENT AUTO 2 % (0-6); Hematocrit 48.6 % (33.0-51.0); Hemoglobin 15.4 g/dL (11.5-16.0); IMMATURE GRAN ABSOLUTE AUTO 0.19 K/mm3 (0.00-0.10); IMMATURE GRAN PERCENT AUTO 2 % (0-1); LYMPHOCYTES ABSOLUTE AUTO 2.31 K/mm3 (0.84-5.20); LYMPHOCYTES PERCENT AUTO 20 % (21-46); MONOCYTES ABSOLUTE AUTO 1.02 K/mm3 (0.16-1.47); MONOCYTES PERCENT AUTO 9 % (4-13); Mean Corpuscular HGB 28.6 pg (26.0-34.0); Mean Corpuscular HGB Conc 31.7 g/dL (31.5-36.5); Mean Corpuscular Volume 90 fL (80-100); Mean Platelet Volume 9.7 fL (9.1-12.4); NEUTROPHILS ABSOLUTE AUTO 7.99 K/mm3 (1.96-9.15); NEUTROPHILS PERCENT AUTO 67 % (41-73); Platelet Count 336 K/mm3 (150-400); RDW Standard Deviation 47.8 fL (35.1-46.3); Red Blood Cell Count 5.39 M/mm3 (3.80-5.20); White Blood Cell Count 11.86 K/mm3 (4.00-11.30)
[2021-10-08 14:52] LABS: Albumin, Blood 3.6 g/dL (3.4-5.0); Albumin/Globulin Ratio 0.8 (0.8-1.8); Bilirubin, Total 0.7 mg/dL (0.1-1.0); Bun/Creatinine Ratio 22.7 (12.0-20.0); Calcium, Blood 10.1 mg/dL (8.5-10.1); Creatinine, Blood 1.76 mg/dL (0.40-1.00); Globulin, Blood 4.7 g/dL (2.2-4.0); Potassium, Blood 4.5 mmol/L (3.5-5.5); Total Protein, Blood 8.3 g/dL (6.4-8.2)
[2021-10-08] MEDS ORDERED: Bactrim Ds Tab1 EACH PO (15:50)
== END 2021-10-08 17:01 | disposition home or self-care (01) ==
LOC: ER 14:00
PROVIDERS: Physician Assistant
DX: L03.115 Cellulitis of right lower limb (principal); L03.116 Cellulitis of left lower limb; Z88.1 Allergy status to other antibiotic agents; Z79.899 Other long term (current) drug therapy; I11.0 Hypertensive heart disease with heart failure; I50.9 Heart failure, unspecified; K21.9 Gastro-esophageal reflux disease without esophagitis
CPT/HCPCS: 36415; 80053; 85025; 99283; A9270

== ENCOUNTER → 2022-07-09 | Outpatient (CLI) | payer OTHER ==
[~2022-07-09] MED LIST changes: +Bactrim Ds Tab1 EACH PO; +ERYT.5TO LEFTEYE; +HYDHCL25 PO; +MICONAZOLE NITR85 GM TOP; +[UNRECOGNIZED DRUG - OTHER] BOTHEYES
== END ==
LOC: LAB SHORT 12:00
DX: H16.002 Unspecified corneal ulcer, left eye (principal)
CPT/HCPCS: 87070; 87205

== ENCOUNTER → 2022-08-02 | Outpatient (CLI) | payer OTHER ==
[2022-08-03 19:08] LABS: Creatinine Urine 51.5 mg/dL (27.00-270.00)
[2022-08-03 19:22] LABS: Microalbumin, Urine Quant. 7.46 mg/L (0.000-20.000)
== END | disposition home or self-care (01) ==
LOC: LAB SHORT 06:00 → LAB 06:00
PROVIDERS: Internal Medicine Nephrology
DX: N18.30 Chronic kidney disease, stage 3 unspecified (principal); D63.1 Anemia in chronic kidney disease; N25.81 Secondary hyperparathyroidism of renal origin; E55.9 Vitamin D deficiency, unspecified; R76.9 Abnormal immunological finding in serum, unspecified; R94.5 Abnormal results of liver function studies; R94.6 Abnormal results of thyroid function studies; D51.8 Other vitamin B12 deficiency anemias; D52.8 Other folate deficiency anemias; D50.9 Iron deficiency anemia, unspecified
CPT/HCPCS: 81050; 82043; 82570; 84156

== ENCOUNTER 2022-09-12 16:39 | Inpatient (IN) | payer OTHER ==
[~2022-09-12] VITALS: Ht 162.6 cm; Wt 161.6 kg
[2022-09-12 19:08] LABS: BASOPHILS ABSOLUTE AUTO 0.03 K/mm3 (0.00-0.23); BASOPHILS PERCENT AUTO 0 % (0-2); EOSINOPHILS ABSOLUTE AUTO 0.34 K/mm3 (0.00-0.68); EOSINOPHILS PERCENT AUTO 3 % (0-6); Hematocrit 43.6 % (33.0-51.0); Hemoglobin 14.2 g/dL (11.5-16.0); IMMATURE GRAN ABSOLUTE AUTO 0.06 K/mm3 (0.00-0.10); IMMATURE GRAN PERCENT AUTO 1 % (0-1); LYMPHOCYTES PERCENT AUTO 13 % (21-46); MONOCYTES PERCENT AUTO 9 % (4-13); Mean Corpuscular HGB 29.6 pg (26.0-34.0); Mean Corpuscular HGB Conc 32.6 g/dL (31.5-36.5); Mean Corpuscular Volume 91 fL (80-100); Mean Platelet Volume 9.9 fL (9.1-12.4); NEUTROPHILS ABSOLUTE AUTO 8.03 K/mm3 (1.96-9.15); NEUTROPHILS PERCENT AUTO 74 % (41-73); Platelet Count 333 K/mm3 (150-400); RDW Coefficient Variation 14.2 % (11.7-14.2); White Blood Cell Count 10.86 K/mm3 (4.00-11.30)
[2022-09-12 19:26] LABS: Albumin, Blood 3.3 g/dL (3.4-5.0); Albumin/Globulin Ratio 0.8 (0.8-1.8); Bilirubin, Total 0.6 mg/dL (0.1-1.0); Bun/Creatinine Ratio 19.7 (12.0-20.0); Calcium, Blood 9.6 mg/dL (8.5-10.1); Creatinine, Blood 1.42 mg/dL (0.40-1.00); Globulin, Blood 4.1 g/dL (2.2-4.0); Potassium, Blood 3.8 mmol/L (3.5-5.5); Total Protein, Blood 7.4 g/dL (6.4-8.2)
--- NOTE | 2022-09-13 03:24 | NUR ---
SHIFT SUMMARY NOC ADMIT FROM ED FOR CELLULITIS IN NARES. PT A/O X4. IS SBA WITH FWW. PT IS CONT OF BOTH URINE AND BM. PT HAS SIGNIFICANT EDEMA 4+ IN BLE WITH LEFT SLIGHTLY MORE SWOLLEN AND WEEPING FLUID. PT REPORTS THAT TODAY WAS FIRST TIME THAT THEY WERE GIVEN DX OF CHF. PT WAS ON 2L/NC UPON ARRIVAL DUE TO GETTING DILAUDID IN ED AND DESATING. O2 IS ON STANDBY BECAUSE PT HAS FENTANYL PRESCRIBED. HOSPITALIST WAS NOTIFIED DURING BEDSIDE REPORT BY RN. PT HAS 2 PERIPHERAL IV SITES ONE IN EACH ARM. PT HAS VANCOMYCYIN PRESCRIBED FOR INFECTION. PT IS PLEASANT AND COOPERATIVE WITH CARE. PT IS CURRENTLY RESTING WITH BED IN LOWEST POSITION, AND CALL LIGHT WITHIN REACH.
--- NOTE | 2022-09-13 18:38 | NUR ---
SHIFT SUMMARY: PT A&O X4. CELLULITIS ON FACE STARTING TO WEEP. MRSA RESULTS REMAIN PENDING. PICTURES TAKEN OF PT NARES AND OUTSIDE LEFT CALF CELLULITIS. PICS IN CHART. PT C/O PAIN ONCE THIS SHIFT. MEDICATED WITH PRN FENTANLY. NO C/O PAIN SINCE. BOTH IV IN PT RIGHT AND LEFT ARM WENT BAD; LEFT LEAKING AND RIGHT INFILTRATED. 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 PT TOLERATED WELL AND IS NOW HAPPY TO RECEIVE VANCOMYCIN W/O PAIN OR BURNING. PT CURRENTY RESTING IN BED. CALL LIGHT IN REACH. BED IN LOWEST POSITION. WILL CONTINUE TO MONITOR.
--- NOTE | 2022-09-14 01:46 | NUR ---
SHIFT SUMMARY NOC PT A/O X 4. PT REFUSED HS HEPARIN AND STOOL SOFTENER. PT HAD PG PLACED IN MARY CARMEN BECAUSE PT HAS PHOBIA OF BEING STUCK WITH NEEDLES AND LABS NEED TO BE DRAWN WELL VANCO TROUGH FOR THERAPEUTIC RESPONSE TO ABX. [facility] WHERE PT RESIDES CALLED ABOUT UPDATE ON PT CONDITION. OFF GOING RN PROVIDED UPDATE RIGHT BEFORE SHIFT CHANGE. PT HAS WEEPING COMING FROM CELLULITIS IN NARES AND LEFT CALF. STILL AWAITING RESULTS OF BLOOD CULTURES AND MRSA SWAB TAKEN YESTERDAY MORNING. PT STILL IN CONTACT ISOLATION PRECAUTIONS UNTIL RESULTS OBTAINED. PT IS CURRENTLY RESTING WITH BED IN LOWEST POSITION, AND CALL LIGHT WITHIN REACH.
[2022-09-14 05:12] LABS: BASOPHILS ABSOLUTE AUTO 0.02 K/mm3 (0.00-0.23); BASOPHILS PERCENT AUTO 0 % (0-2); EOSINOPHILS PERCENT AUTO 5 % (0-6); Hematocrit 35.8 % (33.0-51.0); Hemoglobin 11.6 g/dL (11.5-16.0); IMMATURE GRAN ABSOLUTE AUTO 0.03 K/mm3 (0.00-0.10); IMMATURE GRAN PERCENT AUTO 1 % (0-1); LYMPHOCYTES ABSOLUTE AUTO 1.32 K/mm3 (0.84-5.20); LYMPHOCYTES PERCENT AUTO 21 % (21-46); MONOCYTES ABSOLUTE AUTO 0.69 K/mm3 (0.16-1.47); MONOCYTES PERCENT AUTO 11 % (4-13); Mean Corpuscular HGB 29.9 pg (26.0-34.0); Mean Corpuscular HGB Conc 32.4 g/dL (31.5-36.5); Mean Corpuscular Volume 92 fL (80-100); Mean Platelet Volume 9.8 fL (9.1-12.4); NEUTROPHILS ABSOLUTE AUTO 3.89 K/mm3 (1.96-9.15); NEUTROPHILS PERCENT AUTO 62 % (41-73); Platelet Count 250 K/mm3 (150-400); RDW Coefficient Variation 14.2 % (11.7-14.2); Red Blood Cell Count 3.88 M/mm3 (3.80-5.20); White Blood Cell Count 6.25 K/mm3 (4.00-11.30)
[2022-09-14 05:43] LABS: Bun/Creatinine Ratio 13.8 (12.0-20.0); Calcium, Blood 8.8 mg/dL (8.5-10.1); Creatinine, Blood 1.09 mg/dL (0.40-1.00); Potassium, Blood 3.8 mmol/L (3.5-5.5)
[2022-09-14 16:19] LABS: Vancomycin, Trough 13.3 ug/mL (5.0-10.0)
--- NOTE | 2022-09-14 17:49 | NUR ---
SHIFT SUMMARY PATIENT IS ALERT AND ORIENTED 3-4X. PATIENT HAS HAD NO ACUTE EVENTS THIS SHIFT. VITAL SIGNS REVIEWED. PATIENT IS ADMITTED FOR CELLULITIS. PATIENT HAS HAD NO COMPLAINTS OF PAIN, NAUSEA, SOB OR VOMMITING THIS SHIFT. BED IN LOCKED AND LOWEST POSITION. CALL LIGHT IN PLACE. WILL MONITOR UNTIL SHIFT CHANGE
--- NOTE | 2022-09-15 04:29 | NUR ---
SHIFT SUMMARY; THE PT IS AXO X3-4 AND AND A STANBY ASSIST. THE PT ASKED FOR PRN FENTANYL EARLIER THIS EVENING FOR PAIN R/T TO SWELLING IN BLLE. IT WAS RELAYED TO ME THAT PREVIOUSLY THE PT DESATTED WITH FENTANYL ADMINISTARTION. THEREFORE, I PLACED THE PT ON CONTINOUS PULSE OX AND THE PTS O2 SATURATION WAS 87% ON RA, 2L NC WAS APPLIED AND THE PTS O2 SATS NEDA TO 93%. FENTANYL WAS ADMINISTERED WELL THE PT FELL ASLEEP AND THE PTS O2 SATS DROPED TO 86%, TITRATED THE PT UP TO 4L NC WITH THE PTS O2 SATURATION RISING TO 93%. THE PT IS STILL ON 4L NC WITH O2 SATURATION AT 93%, THE PT REFUSED TO WEAR THE CONTINOUS PULSE OX ANY LONGER. THE PT STATES THAT SHE HAS ÁNGEL, BUT IT IS NOT NOTED IN HER MEDICAL HISTORY. THE PT IS ON HER MENSTURAL CYCLE AND DECLINES TO USE ANY FEMININE PRODUCTS. THE PT HAS A FOUL ODOR, BUT THE PT DECLINES TO SHOWER. THE PT DENIES ANY SOB, CHEST PAIN/PRESSURE OR N/V THIS SHIFT. CURRENTLY THE PT IS SLEEPING IN BED WITH THE BED IN THE LOWEST POSITION AND THE CALL LIGHT AT BEDSIDE.
[2022-09-15 05:50] LABS: BASOPHILS ABSOLUTE AUTO 0.02 K/mm3 (0.00-0.23); BASOPHILS PERCENT AUTO 0 % (0-2); EOSINOPHILS PERCENT AUTO 4 % (0-6); Hematocrit 37.9 % (33.0-51.0); Hemoglobin 12.5 g/dL (11.5-16.0); IMMATURE GRAN ABSOLUTE AUTO 0.05 K/mm3 (0.00-0.10); IMMATURE GRAN PERCENT AUTO 1 % (0-1); LYMPHOCYTES ABSOLUTE AUTO 1.24 K/mm3 (0.84-5.20); LYMPHOCYTES PERCENT AUTO 17 % (21-46); MONOCYTES PERCENT AUTO 9 % (4-13); Mean Corpuscular HGB 29.9 pg (26.0-34.0); Mean Corpuscular Volume 91 fL (80-100); Mean Platelet Volume 9.7 fL (9.1-12.4); NEUTROPHILS ABSOLUTE AUTO 5.15 K/mm3 (1.96-9.15); NEUTROPHILS PERCENT AUTO 69 % (41-73); Platelet Count 272 K/mm3 (150-400); RDW Coefficient Variation 14.1 % (11.7-14.2); RDW Standard Deviation 46.7 fL (35.1-46.3); Red Blood Cell Count 4.18 M/mm3 (3.80-5.20); White Blood Cell Count 7.46 K/mm3 (4.00-11.30)
[2022-09-15 06:25] LABS: Bun/Creatinine Ratio 9.8 (12.0-20.0); Creatinine, Blood 1.12 mg/dL (0.40-1.00); Potassium, Blood 3.9 mmol/L (3.5-5.5)
[2022-09-15 15:52] LABS: Vancomycin, Trough 14.9 ug/mL (5.0-10.0)
--- NOTE | 2022-09-15 17:28 | NUR ---
SHIFT SUMMARY PT AOX4, SBA TO THE BATHROOM. PT'S OPTHAMOLOGIST WAS CONSULTED TODAY, CAME AND SAW THE PT IN ROOM. PT ON 4L NC AFTER EXERCTION OR AT NIGHT. SHE ALSO DOES TEND TO DESAT WHEN TAKING NARCOTICS. SHE HAS C/O PAIN THIS SHIFT AND WAS MEDICATED PER THE EMAR. SHE HAS A PG IN THE MARY CARMEN THAT IS POSITIONAL BUT DOES DRAW. BED LIGHT IN THE LOWEST POSITION, CALL LIGHT WITHIN REACH. WILL REPORT TO THE ONCOMING NURSE.
[2022-09-16] MEDS ORDERED: ARTIFICIAL TEA1 EAC1 BOTHEYES (15:54)
[2022-09-16] MEDS ORDERED: [UNRECOGNIZED DRUG - OTHER] BOTHEYES (15:55)
[2022-09-16] MEDS ORDERED: PREDNISOLONE ACE5 ML LEFTEYE (15:56)
[2022-09-16] MEDS ORDERED: DOXYCYCLINE HY100 M2 PO (15:56)
--- NOTE | 2022-09-16 17:49 | NUR ---
SHIFT SUMMARY PT AOX4, SBA. COOPERATIVE AND PLEASANT WITH CARE. SHE HAS BEEN HYPERTENSIVE ALL SHIFT, THE PROVIDER IS AWARE. MULTIPLE MEDICATIONS HAVE BEEN GIVEN TO IMPROVE THE HYPERTENSION. PT IS INCREDIBLY ANXIOUS AND UPSET ABOUT LEAVING THE HOSPITAL AND WHERE SHE WILL GO AFTERWARDS. SHE IS FROM [facility] BUT MENTIONED THAT HER FLOOR WILL BE CLOSING SOON AND SHE IS NOT SURE WHERE SHE IS GOING TO LIVE. AN EXTENSIVE TALK WAS HAD AND SHE SEEMS A BIT MORE CALM BUT STILL TRYING TO WORK ON GETTING BETTER. SHE HAS BEEN MEDICATED FOR PAIN AND NAUSEA THIS SHIFT, SEE EMAR. PT IS POTENTIALLY DISCHARGING TOMORROW DEPENDING ON HER BLOOD PRESSURE AND THE PLAN WITH HER FACILITY. WILL REPORT TO ONCOMING NURSE.
--- NOTE | 2022-09-17 05:53 | NUR ---
POU[place]O KURA KAUPAPA MAORI SUMMARY PT A/OX4. NO ACUTE EVENTS. BLOOD BRESSURE IMPROVED WITH FIRST SET OF VITALS; BP 137/67. BP TRENDING BACK UP WITH AM VITALS. 168/99. PT REMAINS ON 2L 02. FINDING PT MULTIPLE TIMES WITH NASAL CANUAL SHIFTTED TO SIDE OF FACE. PT AWARE AND STATES IT HAS BEEN UNCOMFORTABLE DUE TO CELLULITIS ON FACE. PT REFUSING PULSE OX AND HEPARIN DRIP THIS SHIFT. PT EDUCATION ON IMPORTANCE OF BOTH. ADVISED PT NO FENTANYL W/OUT PULSE OX. PT AGREED; MED WITH TYLENOL FOR PAIN. PT ABLE TO MAKE NEEDS KNOWN AND USES CALL LIGHT APPROPRIATELY. SBA TO BATHROOM. PT ON TELE; SINUS TACH 100-115. CALL LIGHT ACCESSIBLE.
[2022-09-17 07:03] LABS: Bun/Creatinine Ratio 7.4 (12.0-20.0); Calcium, Blood 9.1 mg/dL (8.5-10.1); Creatinine, Blood 1.08 mg/dL (0.40-1.00); Potassium, Blood 3.8 mmol/L (3.5-5.5)
[2022-09-17] MEDS ORDERED: BACTRIM DS TAB1 EAC1 PO (12:11)
[2022-09-17] MEDS ORDERED: METO25 PO (12:13)
--- NOTE | 2022-09-17 17:38 | NUR ---
SPN SHIFT SUMMARY Pt CONTINUES TO HAVE HIGH BLOOD PRESSURE MEDS GIVEN PER MD ORDER. EYE DROPS NATAMYCIN PER PATIENT WAS D/CD BY PATIENTS PCP. EYE DROP ERYTHROMYCIN OINT ALSO D/C'D BY PATIENTS PCP. QUINCY WAS DESATING TODAY MD ORDERED HOME OXYGEN AT 1LIETER. PATIENT WAS D/C TO [facility] AT 1745.
--- NOTE | 2022-09-17 18:43 | NUR ---
PT DISCHARGED FROM THE UNIT. PG REMOVED. DISCHARGE INSTRUCTINS REVIEWED, REPORT CALLED TO LORNA GALE. SHE LEFT UNIT VIA WHEEL CHAIR. TAXI TO TAKE HER HOME
== END 2022-09-17 18:00 | disposition home or self-care (01) | DRG 872 ==
LOC: ER 16:39 → MEDS 16:40
PROVIDERS: Family Medicine; Physician Assistant; Student in an Organized Health Care Education/Training Program; ADMIT Student in an Organized Health Care Education/Training Program
DX: A41.02 Sepsis due to Methicillin resistant Staphylococcus aureus (principal); L03.116 Cellulitis of left lower limb; N17.9 Acute kidney failure, unspecified; I50.32 Chronic diastolic (congestive) heart failure; L03.211 Cellulitis of face; I13.0 Hypertensive heart and chronic kidney disease with heart failure and stage 1 through stage 4 chronic kidney disease, or unspecified chronic kidney disease; Z68.43 Body mass index [BMI] 50.0-59.9, adult; E87.20 Acidosis, unspecified; L03.115 Cellulitis of right lower limb; R65.20 Severe sepsis without septic shock; N18.30 Chronic kidney disease, stage 3 unspecified; E66.9 Obesity, unspecified; I87.2 Venous insufficiency (chronic) (peripheral); K21.9 Gastro-esophageal reflux disease without esophagitis; K58.9 Irritable bowel syndrome, unspecified; G47.33 Obstructive sleep apnea (adult) (pediatric); I89.0 Lymphedema, not elsewhere classified; H16.002 Unspecified corneal ulcer, left eye; R09.02 Hypoxemia; Z88.1 Allergy status to other antibiotic agents; Z79.899 Other long term (current) drug therapy; Z79.2 Long term (current) use of antibiotics; Z79.01 Long term (current) use of anticoagulants; Z79.811 Long term (current) use of aromatase inhibitors; Z98.890 Other specified postprocedural states; Z86.14 Personal history of Methicillin resistant Staphylococcus aureus infection
CPT/HCPCS: 36415; 70487; 71046; 80048; 80053; 80202; 82565; 83605; 83880; 84484; 85025; 87040; 93005; 93010; 96361; 96365-59; 96366; 96375; 99285-25; A9270; C1751; G0378; J1170; J2405; J3010; J3370; J7030; J7050; J7120; Q9967

== ENCOUNTER → 2022-10-13 | Outpatient (CLI) | payer OTHER ==
[~2022-10-13] MED LIST changes: +ARTIFICIAL TEA1 EAC1 BOTHEYES; +BACTRIM DS TAB1 EAC1 PO; +DOXYCYCLINE HY100 M2 PO; +METO25 PO; +PREDNISOLONE ACE5 ML LEFTEYE; +[UNRECOGNIZED DRUG - OTHER] BOTHEYES
== END | disposition home or self-care (01) ==
LOC: LAB SHORT 11:40
DX: N18.2 Chronic kidney disease, stage 2 (mild) (principal); D63.1 Anemia in chronic kidney disease
CPT/HCPCS: 85018

== ENCOUNTER → 2022-10-14 | Outpatient (CLI) | payer OTHER ==
[2022-10-14 17:45] LABS: Albumin, Blood 4.1 g/dL (3.4-5.0); Anion Gap 10 mmol/L (6-16); Blood Urea Nitrogen 51 mg/dL (8-24); CO2, Blood 27 mmol/L (21-32); Calcium, Blood 9.8 mg/dL (8.5-10.1); Chloride, Blood 101 mmol/L (98-108); Creatinine, Blood 1.89 mg/dL (0.40-1.00); Glomerular Filtration Rate 32 (60-); Glucose, Blood 136 mg/dL (70-99); Phosphorus, Blood 3.4 mg/dL (2.5-4.9); Potassium, Blood 4.3 mmol/L (3.5-5.5); Sodium, Blood 138 mmol/L (136-145)
== END | disposition home or self-care (01) ==
LOC: LAB 11:50 → LAB SHORT 11:50
PROVIDERS: Internal Medicine Nephrology
DX: N18.2 Chronic kidney disease, stage 2 (mild) (principal); D63.1 Anemia in chronic kidney disease
CPT/HCPCS: 80069

== ENCOUNTER 2023-04-18 00:47 | Inpatient (IN) | payer OTHER ==
[~2023-04-18] VITALS: Ht 162.6 cm; Wt 159.0 kg
[~2023-04-18 00:47] MED LIST changes: -METO25 PO; +METO50 PO
[2023-04-18 02:01] LABS: BASOPHILS ABSOLUTE AUTO 0.05 K/mm3 (0.00-0.23); BASOPHILS PERCENT AUTO 0 % (0-2); EOSINOPHILS ABSOLUTE AUTO 0.25 K/mm3 (0.00-0.68); EOSINOPHILS PERCENT AUTO 2 % (0-6); Hematocrit 44.5 % (33.0-51.0); Hemoglobin 13.9 g/dL (11.5-16.0); IMMATURE GRAN ABSOLUTE AUTO 0.06 K/mm3 (0.00-0.10); IMMATURE GRAN PERCENT AUTO 1 % (0-1); LYMPHOCYTES ABSOLUTE AUTO 1.07 K/mm3 (0.84-5.20); LYMPHOCYTES PERCENT AUTO 9 % (21-46); MONOCYTES ABSOLUTE AUTO 1.22 K/mm3 (0.16-1.47); MONOCYTES PERCENT AUTO 10 % (4-13); Mean Corpuscular HGB 27.2 pg (26.0-34.0); Mean Corpuscular HGB Conc 31.2 g/dL (31.5-36.5); Mean Corpuscular Volume 87 fL (80-100); Mean Platelet Volume 10.4 fL (9.1-12.4); NEUTROPHILS ABSOLUTE AUTO 9.19 K/mm3 (1.96-9.15); NEUTROPHILS PERCENT AUTO 78 % (41-73); Platelet Count 315 K/mm3 (150-400); RDW Coefficient Variation 14.6 % (11.7-14.2); RDW Standard Deviation 46.5 fL (35.1-46.3); Red Blood Cell Count 5.11 M/mm3 (3.80-5.20); White Blood Cell Count 11.84 K/mm3 (4.00-11.30)
[2023-04-18 02:11] LABS: Bun/Creatinine Ratio 23.8 (12.0-20.0); Calcium, Blood 8.9 mg/dL (8.5-10.1); Creatinine, Blood 1.47 mg/dL (0.40-1.00); Potassium, Blood 4.2 mmol/L (3.5-5.5)
[2023-04-18] MEDS ORDERED: AMLODIPINE BESYL5 MG PO (04:08)
[2023-04-18] MEDS ORDERED: KLOR-CON 1010 ME9 PO (04:10)
[2023-04-18] MEDS ORDERED: FUROSEMIDE40 MG PO (04:10)
[2023-04-18 06:19] VITALS: BP 158/97
[2023-04-18 07:37] LABS: Albumin, Blood 2.9 g/dL (3.4-5.0); Albumin/Globulin Ratio 0.8 (0.8-1.8); Bilirubin, Total 0.8 mg/dL (0.1-1.0); Bun/Creatinine Ratio 22.3 (12.0-20.0); Calcium, Blood 8.5 mg/dL (8.5-10.1); Creatinine, Blood 1.3 mg/dL (0.40-1.00); Globulin, Blood 3.7 g/dL (2.2-4.0); Potassium, Blood 4.2 mmol/L (3.5-5.5); Total Protein, Blood 6.6 g/dL (6.4-8.2)
[2023-04-18 07:44] VITALS: BP 145/102
[2023-04-18 07:47] LABS: BASOPHILS ABSOLUTE AUTO 0.02 K/mm3 (0.00-0.23); BASOPHILS PERCENT AUTO 0 % (0-2); EOSINOPHILS ABSOLUTE AUTO 0.18 K/mm3 (0.00-0.68); EOSINOPHILS PERCENT AUTO 2 % (0-6); Hemoglobin 13.6 g/dL (11.5-16.0); IMMATURE GRAN ABSOLUTE AUTO 0.04 K/mm3 (0.00-0.10); IMMATURE GRAN PERCENT AUTO 0 % (0-1); LYMPHOCYTES ABSOLUTE AUTO 1.01 K/mm3 (0.84-5.20); LYMPHOCYTES PERCENT AUTO 10 % (21-46); MONOCYTES ABSOLUTE AUTO 1.04 K/mm3 (0.16-1.47); MONOCYTES PERCENT AUTO 10 % (4-13); Mean Corpuscular HGB 27.4 pg (26.0-34.0); Mean Corpuscular HGB Conc 31.6 g/dL (31.5-36.5); Mean Corpuscular Volume 87 fL (80-100); Mean Platelet Volume 10.2 fL (9.1-12.4); NEUTROPHILS ABSOLUTE AUTO 7.67 K/mm3 (1.96-9.15); NEUTROPHILS PERCENT AUTO 77 % (41-73); Platelet Count 288 K/mm3 (150-400); RDW Coefficient Variation 14.6 % (11.7-14.2); RDW Standard Deviation 45.7 fL (35.1-46.3); Red Blood Cell Count 4.96 M/mm3 (3.80-5.20); White Blood Cell Count 9.96 K/mm3 (4.00-11.30)
[2023-04-18 11:43] VITALS: BP 152/87
--- NOTE | 2023-04-18 11:58 | NUR ---
MD TO BEDSIDE HOUSE DIRECTOR CALLED WITH SVT [address] ERVIN INFORMED AT BEDSIDE. PLAN FOR INCREASED DIURETICS AND PT REQUESTING PUREWICK PLACEMENT. FLUID RESTRICTION 1500CC/DAY EXPLAINED TO PT.
[2023-04-18] MEDS ORDERED: ZYRTEC10 M2 PO (12:12)
[2023-04-18] MEDS ORDERED: SIME80CH PO (12:13)
[2023-04-18] MEDS ORDERED: FLUT.05NI (12:16)
[2023-04-18 15:25] VITALS: BP 151/80
--- NOTE | 2023-04-18 18:24 | NUR ---
SHIFT SUMMARY MS CAO IS ON TELEMETRY, MOSTLY ST LOW 100S, ONE EVENT UP TO 170 EARLIER TODAY WHEN PT WAS RESTING. ON OXYGEN 2L N/C, SOME SOB WITH ACTIVITY. UP TO BEDSIDE COMMODE WITH 1 PERSON ASSIST. IT'S A LOT OF EFFORT AND UNCOMFORTABLE FOR HER TO GET UP OUT OF BED TO BEDSIDE COMMODE. HER LEGS ARE RED, EDEMATUS, WEEPING ODIFEROUS FLUID. HER ABDOMEN IS LARGE AND FIRM WITH REDDENED TENDER AREAS IN ABDOMINAL FOLDS, IN THE FOLDS BEHIND HER KNEES AND BETWEEN HER THIGHS. SHE HAS C/O TENDERNESS WHICH WAS HELPED SOMEWHAT WITH TYLENOL. SHE LIVES AT [facility] AND SAID SHE DOES NOT GET MUCH HELP SHE NEEDS, GETS ALL HER MEALS PREPARED AND A CARE WORKER JUST ONCE A WEEK PER PT. SHE HAS BEEN TIRED TODAY, SLEPT A LOT, WOKE EASILY AND APPROPRIATELY. BED LOW, CALL LIGHT IN REACH.
[2023-04-18 19:32] VITALS: BP 128/66
[2023-04-19 03:45] LABS: Vancomycin, Trough 25.8 ug/mL (5.0-10.0)
[2023-04-19 04:15] VITALS: BP 149/93
--- NOTE | 2023-04-19 05:25 | NUR ---
SHIFT SUMMARY PT IS A&OX4, PLEASANT AND COOPERATIVE WITH CARES. NORMOTENSIVE, NSR/ST 90'S-110'S, TMAX 100.3, 93% O2 ON 2L NC. C/O PAIN IN BLE, GAVE PRN TYLENOL FOR PAIN AND FEVER. BLE 4+ EDEMA, RED AND ANGRY. LLE WEEPING AND HAS SOME CRUSTED SCABS. TOLERATING A GENERAL DIET. AM DOSE OF VANCO DC'D D/T CRITICAL VANCO TROUGH. X1 ASSIST TO BSC. LARGE URINE OUTPUT VIA PUREWICK. NO BM THIS SHIFT. BED IN LOWEST POSITION. CALL LIGHT WITHIN REACH. CALLS APPROPRIATELY. CONTACT PRECAUTIONS MAINTAINED. FIRE SAFETY CHECKS COMPLETED.
[2023-04-19 07:40] VITALS: BP 153/89
[2023-04-19 15:46] VITALS: BP 146/90
--- NOTE | 2023-04-19 17:55 | NUR ---
SHIFT SUMMARY NO ACUTE CHANGES THIS SHIFT. CALL LIGHT WITHIN REACH AND PT ABLE TO MAKE NEEDS KNOWN.
[2023-04-19 19:33] VITALS: BP 131/74
--- NOTE | 2023-04-20 03:29 | NUR ---
SHIFT SUMMARY PT A7O X4, CALM AND COOPERATIVE WITH CARE. CURRENTLY ON 2L O2 VIA NC. TELEMETRY: SR @95. FLUID RESTRICTIONED MAINTAINED T/O SHIFT. 1X NURSE ASSIST TO BSC. BLE EDEMA WITH LLE WHEEPING. CONTACT PRECAUTIONS MAINTAINED. BED KEPT IN LOWEST POSITION WITH CALL LIGHT WITHIN REACH. PT CALLS APPROPRAITELY FOR NEEDS.
[2023-04-20 03:43] VITALS: BP 178/118
[2023-04-20 04:16] VITALS: BP 190/103
--- NOTE | 2023-04-20 04:34 | NUR ---
BLOOD PRESSURE PT HAD AN EPISODE OF HIGH BLOOD PRESSURE. MEDICATED PER EMAR. WILL CONTINUE TO MONITOR.
[2023-04-20 04:57] VITALS: BP 169/91
[2023-04-20 06:48] LABS: Bun/Creatinine Ratio 20.7 (12.0-20.0); Calcium, Blood 9.4 mg/dL (8.5-10.1); Creatinine, Blood 1.16 mg/dL (0.40-1.00)
[2023-04-20 07:52] VITALS: BP 169/95
[2023-04-20 16:02] VITALS: BP 144/88
--- NOTE | 2023-04-20 18:45 | NUR ---
SHIFT SUMMARY PT A&OX4. PT CONTINUING TO GET IV ABX. VANCOMYCN WAS GIVEN LATE D/T NO IV ACCESS. A POWER GLIDE WAS PLACED AROUND NOON. PHARMACY CONSULTED AND VANCO GIVEN AT 1218. NO C/O PAIN. PT CALLS APPROPRIATLY. PT ENCOURAGED TO GET UP TO CHAIR FOR MEALS. NO ACUTE CHANGES. PLAN IS TO CONTINUE DIURSING. BED IN LOWEST POSITION AND CALL LIGHT IN REACH.
[2023-04-20 19:46] VITALS: BP 138/65
[2023-04-20 21:06] LABS: Vancomycin, Trough 27.1 ug/mL (5.0-10.0)
[2023-04-21 04:43] VITALS: BP 182/91
[2023-04-21 06:03] LABS: Bun/Creatinine Ratio 22.2 (12.0-20.0); Calcium, Blood 9.1 mg/dL (8.5-10.1); Creatinine, Blood 1.17 mg/dL (0.40-1.00); Potassium, Blood 4.9 mmol/L (3.5-5.5)
--- NOTE | 2023-04-21 06:03 | NUR ---
SHIFT SUMARY PT A&0 X4, COOPERATIVE WITH CARE. TELEMETRY: SR @ 89. 2L O2 VIA NC. 1 PERSON ASSIST TO BSC. FLUID RESTRICTION 1500 ML MAINTAINED. PT HAD AN APISODE OF HIGH BLOOD PRESSURE THIS AM. SEE ORDERS-MEDICATED PER EMAR. PT HAS BLE EDEMA AND WHEEPING. WHEELCHAIR AT BASELINE. BED KEPT IN LOWEST POSITION WITH CALL LIGHT WITHIN REACH. WILL CONTINUE TO MONITOR.
[2023-04-21 06:06] VITALS: BP 162/75
[2023-04-21 08:00] VITALS: BP 177/104
[2023-04-21] MEDS ORDERED: Acetaminophen650 M1 PO (11:29)
[2023-04-21] MEDS ORDERED: METO2.5 (11:30)
[2023-04-21] MEDS ORDERED: SENN187 PO (11:31)
[2023-04-21] MEDS ORDERED: Vibramycin100 MG PO (11:32)
[2023-04-21] MEDS ORDERED: MUPIROCIN22 G9 TOP (11:34)
[2023-04-21 15:11] VITALS: BP 156/85
--- NOTE | 2023-04-21 18:14 | NUR ---
PT DISCHARGED BACK TO [facility]. YEISON INSTRUCTIONS AND EDUCATION MATERIAL EXPLAINED TO PT. NO NEW QUESTIONS OR CONCERNS. MEDICATIONS FAXED TO PHARMACY. MEETA GONZALEZVERED OXYGEN TO PT ROOM. SABRNIA CASSIDY. PT HELPED TO DRESS. ALL BELONGINGS SENT WITH PT. PT TRANSPORTED BY HEALTH SYSTEM.
== END 2023-04-21 16:50 | disposition home or self-care (01) | DRG 872 ==
LOC: ER 00:47 → MEDS 00:48 → ENPENDDIS 04-21 15:30 → MEDS 04-21 16:50
PROVIDERS: Family Medicine; Internal Medicine; Student in an Organized Health Care Education/Training Program; ADMIT Student in an Organized Health Care Education/Training Program
PROC: 3E03329 Introduction of Other Anti-infective into Peripheral Vein, Percutaneous Approach (ICD-10-PCS; principal; 2023-04-18)
PROC: 8E0ZXY6 Isolation (ICD-10-PCS; 2023-04-18)
PROC: 5A09357 Assistance with Respiratory Ventilation, Less than 24 Consecutive Hours, Continuous Positive Airway Pressure (ICD-10-PCS; 2023-04-18)
DX: A41.9 Sepsis, unspecified organism (principal); L03.116 Cellulitis of left lower limb; I13.0 Hypertensive heart and chronic kidney disease with heart failure and stage 1 through stage 4 chronic kidney disease, or unspecified chronic kidney disease; L03.115 Cellulitis of right lower limb; Z68.44 Body mass index [BMI] 60.0-69.9, adult; I50.32 Chronic diastolic (congestive) heart failure; N18.30 Chronic kidney disease, stage 3 unspecified; I89.0 Lymphedema, not elsewhere classified; B37.2 Candidiasis of skin and nail; G47.33 Obstructive sleep apnea (adult) (pediatric); E66.9 Obesity, unspecified; K21.9 Gastro-esophageal reflux disease without esophagitis; I87.8 Other specified disorders of veins; K58.9 Irritable bowel syndrome, unspecified; Z88.1 Allergy status to other antibiotic agents; Z22.322 Carrier or suspected carrier of Methicillin resistant Staphylococcus aureus; Z98.84 Bariatric surgery status; Z20.7 Contact with and (suspected) exposure to pediculosis, acariasis and other infestations; Z28.21 Immunization not carried out because of patient refusal; Z99.3 Dependence on wheelchair
CPT/HCPCS: 36415; 73552; 73590; 80048; 80053; 80202; 83605; 85025; 87040; 87147; 94761; 96365; 96366; 96372; 96375; 99285-25; A9270; C1751; G0378; J0360; J0696; J1650; J2270; J3370; J7030; J7050

== ENCOUNTER 2023-05-08 07:49 | Emergency (ER) | payer OTHER ==
[~2023-05-08] VITALS: Ht 162.6 cm; Wt 143.3 kg
[~2023-05-08 07:49] MED LIST changes: +AMLODIPINE BESYL5 MG PO; +Acetaminophen650 M1 PO; +FLUT.05NI; +FUROSEMIDE40 MG PO; +KLOR-CON 1010 ME9 PO; +METO2.5; +MUPIROCIN22 G9 TOP; +SENN187 PO; +SIME80CH PO; +Vibramycin100 MG PO; +ZYRTEC10 M2 PO
[2023-05-08 07:57] VITALS: BP 143/101
[2023-05-08] MEDS ORDERED: ABILIFY MYCITE2 M2 PO (08:56)
== END 2023-05-08 14:26 | disposition home or self-care (01) ==
LOC: ER 07:49
DX: F22 Delusional disorders (principal); I11.0 Hypertensive heart disease with heart failure; I50.9 Heart failure, unspecified; Z86.14 Personal history of Methicillin resistant Staphylococcus aureus infection; Z88.1 Allergy status to other antibiotic agents; Z79.899 Other long term (current) drug therapy; Z79.51 Long term (current) use of inhaled steroids
CPT/HCPCS: 99282; A9270

== ENCOUNTER → 2023-05-24 | Outpatient (CLI) | payer OTHER ==
[~2023-05-24] MED LIST changes: +ABILIFY MYCITE2 M2 PO
== END | disposition home or self-care (01) ==
LOC: LAB SHORT 18:16 → LAB 18:16
DX: A49.02 Methicillin resistant Staphylococcus aureus infection, unspecified site (principal)
CPT/HCPCS: 87070; 87077; 87186; 87205

== ENCOUNTER 2023-06-14 20:52 | Emergency (ER) | payer OTHER ==
[~2023-06-14] VITALS: Ht 162.6 cm; Wt 174.6 kg
[2023-06-14 22:18] LABS: BASOPHILS ABSOLUTE AUTO 0.05 K/mm3 (0.00-0.23); BASOPHILS PERCENT AUTO 1 % (0-2); EOSINOPHILS ABSOLUTE AUTO 0.29 K/mm3 (0.00-0.68); EOSINOPHILS PERCENT AUTO 3 % (0-6); Hematocrit 45.2 % (33.0-51.0); Hemoglobin 14.1 g/dL (11.5-16.0); IMMATURE GRAN ABSOLUTE AUTO 0.05 K/mm3 (0.00-0.10); IMMATURE GRAN PERCENT AUTO 1 % (0-1); LYMPHOCYTES ABSOLUTE AUTO 2.75 K/mm3 (0.84-5.20); LYMPHOCYTES PERCENT AUTO 25 % (21-46); MONOCYTES ABSOLUTE AUTO 1.17 K/mm3 (0.16-1.47); MONOCYTES PERCENT AUTO 11 % (4-13); Mean Corpuscular HGB 26.6 pg (26.0-34.0); Mean Corpuscular HGB Conc 31.2 g/dL (31.5-36.5); Mean Corpuscular Volume 85 fL (80-100); Mean Platelet Volume 10.3 fL (9.1-12.4); NEUTROPHILS ABSOLUTE AUTO 6.56 K/mm3 (1.96-9.15); NEUTROPHILS PERCENT AUTO 60 % (41-73); NRBC ABSOLUTE 0.02 K/mm3 (0.00-0.02); NRBC Auto 0.2 /100 WBC (0.0-0.2); Platelet Count 347 K/mm3 (150-400); RDW Coefficient Variation 15.8 % (11.7-14.2); RDW Standard Deviation 47.8 fL (35.1-46.3); White Blood Cell Count 10.87 K/mm3 (4.00-11.30)
[2023-06-14 22:32] LABS: Albumin, Blood 2.9 g/dL (3.4-5.0); Albumin/Globulin Ratio 0.6 (0.8-1.8); Bilirubin, Total 0.3 mg/dL (0.1-1.0); Bun/Creatinine Ratio 15.8 (12.0-20.0); Calcium, Blood 8.9 mg/dL (8.5-10.1); Creatinine, Blood 2.09 mg/dL (0.40-1.00); Globulin, Blood 4.7 g/dL (2.2-4.0); Potassium, Blood 3.7 mmol/L (3.5-5.5); Total Protein, Blood 7.6 g/dL (6.4-8.2)
[2023-06-15 00:24] VITALS: BP 132/97
[2023-06-15] MEDS ORDERED: CYCL10 PO (00:52)
== END 2023-06-15 04:08 | disposition home or self-care (01) ==
LOC: ER 20:52
PROVIDERS: Emergency Medicine
DX: S81.802A Unspecified open wound, left lower leg, initial encounter (principal); I11.0 Hypertensive heart disease with heart failure; I50.9 Heart failure, unspecified; L97.229 Non-pressure chronic ulcer of left calf with unspecified severity; Z88.1 Allergy status to other antibiotic agents; Z79.899 Other long term (current) drug therapy
CPT/HCPCS: 73700; 80053; 83605; 85025; 96360; 96361; 99284-25; A9270; J7030